=== PATIENT | female | born 1945 | race Hispanic/Latino ===

== ENCOUNTER 2017-07-25 08:00 | Outpatient (CLI) | payer MEDICARE | END 2017-07-25 08:01 | disposition home or self-care (01) | LOC: BICMAMMO 08:00 | PROVIDERS: ATTEND Family Medicine | DX: Z12.31 Encounter for screening mammogram for malignant neoplasm of breast (principal); R92.1 Mammographic calcification found on diagnostic imaging of breast | CPT/HCPCS: 77063 ×2; G0202 ×2; 77067 ==

== ENCOUNTER 2020-01-24 01:33 | Inpatient (IN) | payer MEDICARE, OTHER ==
[2020-01-24 02:15] LABS: Actual Bicarbonate (HCO3a) 22.9 mEq/L (22-28); Analyzer IN Cardio ER; CO2 Tension 35.6 mmHg (35.0-45.0); Calcium, Ionized (arterial) 1.04 mmol/L (1.12-1.30); Carboxyhemoglobin (COHb) 0.5 gm% (0.0-3.0); Hemoglobin (Hb) 12.4 g/dL (12.0-16.0); O2 Tension (PaO2), arterial 93.8 mmHg (> 70.0); Potassium - ABG Lab 4.81 mmol/L (3.70-5.30); pH, Arterial 7.43 (7.35-7.45)
[2020-01-24 02:16] LABS: Puncture Site RR
[2020-01-24 02:35] LABS: Bilirubin Negative (Negative); Blood, Urine Negative (Negative); Clarity Clear (Clear); Glucose, Urine (Dipstick) Greater than 1000 mg/dL (Negative); Ketone, Urine 20 mg/dL (Negative); Leukocyte Negative Leu/uL (Negative); Nitrite Negative (Negative); Protein, Urine (Dipstick) 20 mg/dL (Neg-Trace); Specific Gravity, Urine 1.031 (1.002-1.036); Urobilinogen Normal mg/dL (Less than 2); pH, Urine 5.5 (5.0-9.0)
[2020-01-24 02:55] LABS: #Lymphocytes 0.8 thou/uL (1.20-3.40); #Monocytes 0.2 thou/uL (0.11-0.59); #Neutrophils 8.3 thou/uL (1.40-6.50); %Basophils 0.1 % (0.0-1.0); %Eosinophils 0.2 % (0.0-10.0); %Lymphocytes 8.1 % (21.0-51.0); %Monocytes 1.7 % (0.0-10.0); %Neutrophils 89.9 % (42.0-75.0); Hemoglobin 9.4 g/dL (12.0-16.0); Mean Corpuscular HGB CONC 30.6 g/dL (32.0-36.0); Mean Corpuscular Hemoglobin 31.8 pg (27.0-31.0); Mean Platelet Volume 8.2 fL (7.4-10.4); Platelet Count 181 thou/uL (130-400); RBC Distribution Width 12.9 % (11.5-14.5); Red Blood Cell (RBC) Count 2.97 mill/uL (4.20-5.40); White Blood Cell (WBC) Count 9.3 thou/uL (4.8-10.8)
[2020-01-24] MEDS ORDERED: Furosemide 40 MG/4 ML VIAL ONE (04:00)
[2020-01-24] MEDS ORDERED: Dextrose 50% Abboject 50 ML SYRINGE SLOW IVP PRN (04:04)
[2020-01-24] MEDS ORDERED: Dextrose 5% in Water 1,000 ML IV PRN (04:04)
--- NOTE | 2020-01-24 04:22 | PDOC.EVN ---
Event Note - Event Note Event Note: [id number] dictated
[2020-01-24 05:20] LABS: INR-International Normal Ratio 1.2; Prothrombin Time 14.8 sec (12.0-14.7)
--- NOTE | 2020-01-24 05:31 | HP ---
CHIEF COMPLAINT: Altered mental status. HISTORY OF PRESENT ILLNESS: Ms. Guerra is a 74-year-old female with past medical history of ? coronary artery disease, coronary artery bypass graft surgery, and diabetes mellitus, was brought to the emergency room for altered mental status, low blood pressure, and elevated blood glucose. It was reported her blood glucose was 451. The patient was hypotensive with systolic blood pressure in the 70s. The patient was given IV fluid bolus, latest blood pressure is 109/47. The patient was hypoxic with oxygen saturation in the 70s, placed on nonrebreather. Current oxygen saturation is 98%. The patient had several family members tested positive for COVID. Chest x-ray shows bilateral opacities/infiltrates. Lab work; WBC count is 9.3, hemoglobin 9.4, platelets 181, and lymphocytes low at 0.8. Urinalysis shows glucose, otherwise unremarkable. ABG showed a pH of 7.43, pCO2 of 35, and pO2 of 93. Sodium is 133, potassium 4.8, and creatinine pending. Troponin 0.01 and BNP is 71. No further history can be obtained at this point, the patient is not responding. PAST MEDICAL HISTORY: Limited, but; 1. Diabetes mellitus. 2. Coronary artery disease. PAST SURGICAL HISTORY: Coronary artery bypass graft surgery. FAMILY HISTORY: Unknown. SOCIAL HISTORY: Unknown. ALLERGIES: UNKNOWN. HOME MEDICATIONS: See home medication reconciliation form for updated medications. REVIEW OF SYSTEMS: Unable to obtain due to the patient's underlying medical condition. PHYSICAL EXAMINATION: GENERAL: The patient does not respond to verbal commands on nonrebreather, in moderate distress. HEAD AND NECK: Normocephalic and atraumatic. CHEST: Coarse bilateral breath sounds. HEART: S1 and S2. Regular. ABDOMEN: Soft. Bowel sounds present. NEURO: Does not follow commands. Moving extremities. PSYCH: Unable to assess. EXTREMITIES: No clubbing or cyanosis. LABORATORY DATA: Chest x-ray as mentioned above in history of present illness. Lab as mentioned above in history of present illness. ASSESSMENT: 1. Acute hypoxic respiratory failure. 2. Pneumonia, suspected COVID-19 infection. 3. Hypotension, resolved. 4. Acute encephalopathy, metabolic. 5. Coronary artery disease with history of coronary artery bypass graft surgery. 6. Diabetes mellitus with hyperglycemia. PLAN: 1. Admit. 2. Septic workup including blood cultures, COVID swabs were done in the ED. 3. Empiric IV antibiotics for now. 4. Oxygen to keep saturation more than 92%. 5. Isolation precautions. 6. Consult Pulmonary in a.m. for evaluation and further recommendations. 7. Reconcile home medications. 8. DVT prophylaxis as appropriate. 9. GI prophylaxis. 10. Expected length of stay 3 midnights or more. Job ID: [id number]
[2020-01-24 06:00] LABS: ALT (SGPT) 26 U/L (8-55); AST (SGOT) 37 U/L (5-34); Albumin 3.1 g/dL (3.4-4.8); Alkaline Phosphatase 86 U/L (40-110); Anion Gap 23 mmol/L (10-20); BUN (Urea Nitrogen) 17 mg/dL (9.8-20.1); Bilirubin, Total 0.7 mg/dL (0.2-1.2); Calc. Creatinine Clearance 0 mL/min (70-130); Calcium 8.2 mg/dL (7.8-10.44); Carbon Dioxide 16 mmol/L (23-31); Chloride 102 mmol/L (98-107); Estimated GFR-MDRD 56; Globulin 3.5 g/dL (2.4-3.5); Glucose 404 mg/dL (83-110); Potassium 5.2 mmol/L (3.5-5.1); Protein, Total 6.6 g/dL (6.0-8.3); Sodium 136 mmol/L (136-145)
[2020-01-24 06:02] LABS: Troponin I 0.043 ng/mL (< 0.028)
[2020-01-24] MEDS ORDERED: Lorazepam 2 MG/ML VIAL ONE ×2 (06:30→11:04)
--- NOTE | 2020-01-24 07:37 | RAD ---
Exam: Chest one view HISTORY:Altered mental status. Hypotension. Hyperglycemia Comparison: 10/25/2009, 10/27/2011 FINDINGS: Cardiac silhouette:Normal cardiac silhouette. Sternotomy wires are redemonstrated. Aorta: Atherosclerosis. Pulmonary vessels: Normal Costophrenic angles: Clear LUNGS: Multifocal interstitial and alveolar opacities. Pneumothorax: None Osseous abnormalities: None IMPRESSION: Multifocal interstitial and alveolar opacities. Correlate for edema or infiltrate.
[2020-01-24 08:09] LABS: Actual Bicarbonate (HCO3a) 21.1 mEq/L (22-28); Analyzer IN Cardio ER; Base Excess (BEa) -4.9 mEq/L (-2.0 to +3.0); CO2 Tension 42.5 mmHg (35.0-45.0); Calcium, Ionized (arterial) 1.04 mmol/L (1.12-1.30); Carboxyhemoglobin (COHb) 0.5 gm% (0.0-3.0); Hemoglobin (Hb) 12.8 g/dL (12.0-16.0); O2 Tension (PaO2), arterial 56.1 mmHg (> 70.0); Potassium - ABG Lab 4.72 mmol/L (3.70-5.30); Puncture Site RB; pH, Arterial 7.31 (7.35-7.45)
[2020-01-24 08:10] LABS: ALV-art Gradient 389.875 (0-20)
[2020-01-24 10:33] LABS: Actual Bicarbonate (HCO3a) 20.5 mEq/L (22-28); Base Excess (BEa) -4.5 mEq/L (-2.0 to +3.0); CO2 Tension 37.7 mmHg (35.0-45.0); Calcium, Ionized (arterial) 1.06 mmol/L (1.12-1.30); Carboxyhemoglobin (COHb) 0.8 gm% (0.0-3.0); Hemoglobin (Hb) 12.5 g/dL (12.0-16.0); O2 Tension (PaO2), arterial 71.5 mmHg (> 70.0); Potassium - ABG Lab 4.26 mmol/L (3.70-5.30); pH, Arterial 7.35 (7.35-7.45)
[2020-01-24 10:34] LABS: ALV-art Gradient 380.475 (0-20); Puncture Site RRA
[2020-01-24] MEDS: Enoxaparin Sodium 40 MG/0.4 ML SYRINGE SC SCH (10:52)
[2020-01-24] MEDS: cefTRIAXone\\ROCEPHIN 1 GM in Sodium Chloride 0.9% 100 ML IVPB SCH (10:52)
[2020-01-24] MEDS: Sodium Chloride 0.9% 1,000 ML IV SCH (10:52)
[2020-01-24] MEDS: Famotidine/PF 20 mg/2ml Vial SLOW IVP SCH ×2 (10:53→21:55)
[2020-01-24] MEDS ORDERED: Lorazepam 2 MG/ML VIAL SLOW IVP PRN (10:56)
[2020-01-24 11:05] LABS: Troponin I 0.138 ng/mL (< 0.028)
[2020-01-24] MEDS: Azithromycin 500 MG in Sodium Chloride 0.9% 250 ML 250 ML IVPB SCH (11:15)
[2020-01-24] MEDS: HumaLOG 300 UNITS/3 ML VIAL SC PRN ×3 (11:58→23:50)
[2020-01-24] MEDS: methylPREDNISolone Sod Succ 40 MG VIAL IVP SCH ×3 (11:58→23:43)
[2020-01-24] MEDS ORDERED: Morphine 2 MG/ML SYRINGE SLOW IVP PRN (15:35)
--- NOTE | 2020-01-24 15:42 | CON ---
DATE OF CONSULTATION: HISTORY OF PRESENT ILLNESS: Mick Guerra is a 74-year-old female, whose history is obtained by talking with her daughter who speaks [place], [place]. She states her mother had about a week ago a positive virus test done at [facility] in [place]. No treatment was given. Over the last 24 to 48 hours, she has had more difficulty breathing, cough, with fever. She is a nonsmoker and without previous history of TB, pneumonia. She was brought to the ER last night, where x-ray shows bilateral pulmonary infiltrates. PAST MEDICAL HISTORY: Diabetes, hypertension, coronary artery disease, high cholesterol. PREVIOUS SURGERIES: Bypass here at [facility] but unable to get the access. MEDICATIONS: From home 1. Gabapentin 300 mg three times a day. 2. Metoprolol 50 two a day. 3. Atorvastatin 40. 4. Aspirin 325. 5. Metformin 1000 two a day. 6. Protonix 20. ALLERGIES: UNKNOWN. REVIEW OF SYSTEMS: Otherwise, unremarkable. PHYSICAL EXAMINATION: GENERAL: She is on a BiPAP. VITAL SIGNS: Temperature 98, pulse 100, saturations on a BiPAP over fluctuating between 88 and 93, blood pressure 120/64. LUNGS: She has rhonchi, crackles. CARDIAC: Sinus tach. ABDOMEN: Soft. LABORATORY DATA: PO2 was 71, pCO2 of 37, pH 7.35, on a 70% FiO2 BiPAP. Additional lab, blood sugar was elevated. White count 9000, H and H are 9 and 30, platelet count is 181. Creatinine is normal. BUN is normal. ASSESSMENT: 1. Coronavirus positive pneumonia, respiratory failure, ARDS. 2. Previous CABG, diabetic. Aggressive insulin scale is initiated, steroids, convalescent plasma has been initiated. If she gets progressively worse, she should be intubated. Discussed with the daughter. This is a 70-minute consultation note, 50% direct patient care. Job ID: [id number] [facility]
[2020-01-24] MEDS: Haloperidol Lactate 5 MG/ML VIAL IM PRN (22:36)
[2020-01-25] MEDS: Haloperidol Lactate 5 MG/ML VIAL IM PRN (02:32)
[2020-01-25] MEDS ORDERED: Propofol 1,000 MG/100 ML VIAL IV ONE (03:57)
[2020-01-25] MEDS ORDERED: Sterile Water 10 ML ONE (03:59)
--- NOTE | 2020-01-25 04:11 | PDOC.EVN ---
Event Note - Event Note Event Note: Patient became hypoxic inspite of BiPAp, Intubated and mechanically ventilated.
[2020-01-25] MEDS ORDERED: Fentanyl BOLUS 250 ML IVPB PRN (04:15)
[2020-01-25] MEDS: Vecuronium 10 MG VIAL ONE ×3 (04:15→11:53)
[2020-01-25] MEDS ORDERED: Ventilator Sedation Protocol 1 EACH FS SCH (04:15)
[2020-01-25] MEDS ORDERED: fentaNYL Citrate/PF 2,000 MCG in Sodium Chloride 0.9% 60 ML IV SCH (04:15)
[2020-01-25] MEDS ORDERED: Propofol BOLUS 1,000 MG/100 ML VIAL IV PRN (04:15)
[2020-01-25] MEDS ORDERED: DISCONTINUE PREVIOUS NARCOTIC PAIN MEDICATIONS AND BENZODIAZEPINES FS SCH (04:15)
[2020-01-25 04:39] LABS: Actual Bicarbonate (HCO3a) 19.9 mEq/L (22-28); Base Excess (BEa) -4.1 mEq/L (-2.0 to +3.0); CO2 Tension 32.7 mmHg (35.0-45.0); Calcium, Ionized (arterial) 1.09 mmol/L (1.12-1.30); Carboxyhemoglobin (COHb) 0.8 gm% (0.0-3.0); Hemoglobin (Hb) 10.7 g/dL (12.0-16.0); O2 Tension (PaO2), arterial 78.1 mmHg (> 70.0); Potassium - ABG Lab 4.11 mmol/L (3.70-5.30)
[2020-01-25 04:41] LABS: Puncture Site RRA
[2020-01-25 04:42] LABS: ALV-art Gradient 594.025 (0-20)
[2020-01-25] MEDS: cefTRIAXone\\ROCEPHIN 1 GM in Sodium Chloride 0.9% 100 ML IVPB SCH (05:07)
[2020-01-25] MEDS: Sodium Chloride 0.9% 1,000 ML IV SCH (05:08)
[2020-01-25] MEDS: methylPREDNISolone Sod Succ 40 MG VIAL IVP SCH ×4 (05:08→23:02)
[2020-01-25] MEDS: HumaLOG 300 UNITS/3 ML VIAL SC PRN ×5 (05:17→21:04)
--- NOTE | 2020-01-25 05:31 | PDOC.BPN ---
- Brief Progress Note Code blue called. Patient covid + with multiple comorbidities. 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 Was given haldol x 2 and initially responded to haldol but remained agitated after the second dose. She took off her BiPAP and subsequently became hypoxic and pulseless. When I arrived she was being bagged with strong pulse and PO2 in the 80's. Anesthesia subsequently intubated with good resultant ventilation and oxygenation. I placed a right fem CVC. See operative note.
[2020-01-25] MEDS: Azithromycin 500 MG in Sodium Chloride 0.9% 250 ML 250 ML IVPB SCH (06:15)
[2020-01-25 06:22] LABS: Band 23 % (5-11); Hemoglobin 10.5 g/dL (12.0-16.0); Hypochromia SLIGHT = 6-15 cells (100X) (0-5/hpf); MDiff Complete? YES; Mean Corpuscular HGB CONC 31.3 g/dL (32.0-36.0); Mean Corpuscular Hemoglobin 30.7 pg (27.0-31.0); Mean Corpuscular Volume 97.9 fL (78.0-98.0); Mean Platelet Volume 8.3 fL (7.4-10.4); Monocytes 5 % (0-10); Neutrophil 72 % (42-75); Platelet Count 286 thou/uL (130-400); Platelet Morphology Comment Appears Adequate; RBC Distribution Width 13.2 % (11.5-14.5); Red Blood Cell (RBC) Count 3.42 mill/uL (4.20-5.40); White Blood Cell (WBC) Count 16.4 thou/uL (4.8-10.8)
[2020-01-25 06:30] LABS: ALT (SGPT) 24 U/L (8-55); AST (SGOT) 51 U/L (5-34); Albumin 2.8 g/dL (3.4-4.8); Alkaline Phosphatase 89 U/L (40-110); Anion Gap 16 mmol/L (10-20); BUN (Urea Nitrogen) 18 mg/dL (9.8-20.1); Bilirubin, Total 0.4 mg/dL (0.2-1.2); Calc. Creatinine Clearance 69 mL/min (70-130); Carbon Dioxide 22 mmol/L (23-31); Chloride 112 mmol/L (98-107); Estimated GFR-MDRD 72; Glucose 328 mg/dL (83-110); Potassium 4.4 mmol/L (3.5-5.1); Protein, Total 5.8 g/dL (6.0-8.3); Sodium 146 mmol/L (136-145)
[2020-01-25] MEDS: Enoxaparin Sodium 40 MG/0.4 ML SYRINGE SC SCH ×3 (07:27→20:58)
[2020-01-25] MEDS: Famotidine/PF 20 mg/2ml Vial SLOW IVP SCH (07:28)
[2020-01-25] MEDS: Lorazepam 2 MG/ML VIAL SLOW IVP PRN ×6 (07:30→18:58)
--- NOTE | 2020-01-25 08:07 | RAD ---
SINGLE VIEW OF THE CHEST: COMPARISON: 01/25/2020. HISTORY: Code Blue. Respiratory failure. FINDINGS: A single view of the chest shows a normal-size cardiomediastinal silhouette. The endotracheal tube a nd NG Tube are unchanged in position. There are stable bilateral perihilar fluffy opacities. Atelec tasis versus an infiltrate is seen in the left lung base. IMPRESSION: Stable exam. POS: SANTOA
--- NOTE | 2020-01-25 08:09 | RAD ---
SINGLE VIEW OF THE CHEST: COMPARISON: 01/24/2020. HISTORY: Code Blue with respiratory failure. FINDINGS: A single view of the chest shows a normal-size cardiomediastinal silhouette with atherosclerotic calc ifications in the aorta. The endotracheal tube is seen with its tip in good position above the summer a. An NG tube is seen with its tip in the stomach. There are bilateral perihilar fluffy opacities. Atelectasis versus an infiltrate is seen in the left lung base. The patient is status post sternoto my. IMPRESSION: 1. Status post intubation with appropriate positioning within the endotracheal tube. 2. Bilateral perihilar and left lower lobe infiltrates. POS: EAA
[2020-01-25] MEDS ORDERED: Vecuronium Bromide 20 MG VIAL IV PRN (09:00)
[2020-01-25] MEDS ORDERED: Tocilizumab 400 MG in Sodium Chloride 0.9% 80 ML IV SCH (09:15)
[2020-01-25] MEDS ORDERED: REMDESIVIR 200 MG in Sodium Chloride 0.9% 250 ML 210 ML IV SCH (09:15)
--- NOTE | 2020-01-25 09:45 | PRG ---
DATE OF SERVICE: 01/25/2020 SUBJECTIVE: Mick Guerra who became more encephalopathic last night, took out of BiPAP, had to be intubated. X-ray shows diffuse pulmonary infiltrates consistent with ARDS. OBJECTIVE: VITAL SIGNS: Temperature 99, pulse 93, and sats 100%. CHEST: Decreased breath sounds. Rhonchi and crackles. CARDIAC: Sinus tach. ABDOMEN: Soft. NEUROLOGIC: Sedated. LABORATORY DATA: White count 16,000, H and H 10/30, and platelet count is normal. PO2 of 78, pCO2 rate of 20, 100%, 450 tidal volume. ASSESSMENT: Respiratory failure, acute respiratory distress syndrome, coronavirus positive pneumonia. Diabetes. We are going to give her convalescent plasma, remdesivir per protocol, along with steroids, antibiotics. She is going to be prone for a minimum of 16 to 18 hours for the next 48 to 72 hours. Once oxygenation improves, supine position and start feedings. Prognosis is guarded. One-half hour of critical care time. Job ID: [id number]
[2020-01-25] MEDS: Propofol 1,000 MG/100 ML VIAL IV PRN ×2 (09:52→14:02)
--- NOTE | 2020-01-25 10:42 | OP ---
DATE OF PROCEDURE: 01/25/2020 PROCEDURE PERFORMED: Right femoral central venous catheter placement. INDICATIONS FOR PROCEDURE: Code blue with subsequent need for IV access. CONSENT: This was an emergent procedure. DESCRIPTION OF PROCEDURE: The patient was placed in the supine position. The right groin was cleaned with chlorhexidine. Hand hygiene was performed. A hat, mask, gown, gloves and full body drape were utilized. One attempt was made with no ultrasound guidance in the right groin with no blood return. Subsequently, the ultrasound machine was brought into the room and a sterile probe cover was placed and using ultrasound guidance , the right femoral vein was accessed on the second attempt with dark blood that was nonpulsatile withdrawn. The syringe was removed and a guidewire was advanced into the introducer needle. The introducer needle was withdrawn and the guidewire was visualized in the right femoral vein by ultrasound. A small incision was made at the skin surface with a scalpel and a dilator was advanced over the guidewire. After appropriate dilation, this was removed and a triple lumen central venous catheter was placed over the wire. The wire was subsequently removed and a catheter was sutured in place. All ports were aspirated and flushed. The RN placed a dressing subsequently to it being sutured in place. The patient tolerated the procedure well. ESTIMATED BLOOD LOSS: 5 mL. Job ID: [id number] [facility]
[2020-01-25] MEDS: Vecuronium 10 MG VIAL IV PRN ×4 (14:03→23:02)
--- NOTE | 2020-01-25 17:25 | PDOC.EVN ---
Event Note - Event Note Event Note: The patient is intubated, sedated. She was placed in the prone position. She received IL6 therapy, ceftriaxone and azithromycin General: patient intubated, sedated, in prone position CV: sinus rhythm, not tachycardic Lungs: diffuse crackles abdomen: nondistended Ext: no significant edema Labs: WBC 16.4, Chest Xray: infiltrate LL base This is a 74 year old female who presented with COVId pneumonia, desaturated overnight and required intubation Acute hypoxic respiratory failure secondary to COVID pneumonia - intubated,in prone position - continue ceftriaxone, azithromycin, IV steroids, tocilizumab - receiving plasma - waiting for consent from family for remdesivir Hypernatremia - sodium and chloride elevated, will switch to 1/2 NS Type II diabetes - will start lantus 8 units SC qhs DVT prophylaxis: lovenox Code status: full code
[2020-01-25] MEDS ORDERED: Insulin Glargine 8 UNITS in Pre-Filled Syringe 1 EACH SC SCH (21:00)
[2020-01-25] MEDS: Famotidine 40 MG/5 ML Oral Suspension PER TUBE SCH (22:20)
[2020-01-25] MEDS: Sodium Chloride 0.45% 1,000 ML IV SCH (22:20)
[2020-01-26] MEDS: HumaLOG 300 UNITS/3 ML VIAL SC PRN ×6 (00:16→23:41)
[2020-01-26] MEDS: Propofol 1,000 MG/100 ML VIAL IV PRN ×3 (03:23→15:46)
[2020-01-26 04:49] LABS: #Lymphocytes 0.4 thou/uL (1.20-3.40); #Monocytes 0.3 thou/uL (0.11-0.59); #Neutrophils 11.7 thou/uL (1.40-6.50); %Eosinophils 0.1 % (0.0-10.0); %Lymphocytes 3.5 % (21.0-51.0); %Monocytes 2.3 % (0.0-10.0); %Neutrophils 94.1 % (42.0-75.0); Hemoglobin 9.5 g/dL (12.0-16.0); Mean Corpuscular HGB CONC 32.7 g/dL (32.0-36.0); Mean Corpuscular Hemoglobin 31.9 pg (27.0-31.0); Mean Corpuscular Volume 97.7 fL (78.0-98.0); Mean Platelet Volume 8.3 fL (7.4-10.4); Platelet Count 273 thou/uL (130-400); RBC Distribution Width 13.1 % (11.5-14.5); Red Blood Cell (RBC) Count 2.96 mill/uL (4.20-5.40); White Blood Cell (WBC) Count 12.4 thou/uL (4.8-10.8)
[2020-01-26 05:09] LABS: Anion Gap 13 mmol/L (10-20); BUN (Urea Nitrogen) 20 mg/dL (9.8-20.1); Calc. Creatinine Clearance 79 mL/min (70-130); Calcium 7.6 mg/dL (7.8-10.44); Carbon Dioxide 25 mmol/L (23-31); Chloride 114 mmol/L (98-107); Estimated GFR-MDRD 84; Glucose 228 mg/dL (83-110); Potassium 3.5 mmol/L (3.5-5.1); Sodium 148 mmol/L (136-145)
[2020-01-26] MEDS: Vecuronium 10 MG VIAL IV PRN ×3 (05:34→16:35)
[2020-01-26] MEDS: methylPREDNISolone Sod Succ 40 MG VIAL IVP SCH ×4 (05:34→23:41)
[2020-01-26] MEDS: Enoxaparin Sodium 40 MG/0.4 ML SYRINGE SC SCH ×2 (07:29→21:10)
[2020-01-26 07:32] LABS: Actual Bicarbonate (HCO3a) 23.5 mEq/L (22-28); Base Excess (BEa) -0.5 mEq/L (-2.0 to +3.0); CO2 Tension 35.9 mmHg (35.0-45.0); Carboxyhemoglobin (COHb) 0.1 gm% (0.0-3.0); Hemoglobin (Hb) 9.5 g/dL (12.0-16.0); O2 Tension (PaO2), arterial 146.7 mmHg (> 70.0); Potassium - ABG Lab 3.55 mmol/L (3.70-5.30); pH, Arterial 7.43 (7.35-7.45)
[2020-01-26] MEDS: cefTRIAXone\\ROCEPHIN 1 GM in Sodium Chloride 0.9% 100 ML IVPB SCH (07:32)
[2020-01-26] MEDS: Sodium Chloride 0.45% 1,000 ML IV SCH ×2 (07:50→23:41)
[2020-01-26 07:57] LABS: ALV-art Gradient 236.225 (0-20); Puncture Site RRAD
[2020-01-26] MEDS: Azithromycin 500 MG in Sodium Chloride 0.9% 250 ML 250 ML IVPB SCH (08:25)
[2020-01-26] MEDS: Famotidine 40 MG/5 ML Oral Suspension PER TUBE SCH ×2 (08:25→21:10)
--- NOTE | 2020-01-26 08:26 | RAD ---
Exam: Chest one view HISTORY:Ventilated patient. Respiratory distress. Comparison: 01/25/2020 FINDINGS: Lines and tubes: Stable endotracheal and nasogastric tubes. Stable sternotomy wires. Cardiac silhouette:Enlarged cardiac silhouette. Aorta: Stable atherosclerosis Pulmonary vessels: Normal Costophrenic angles: Clear LUNGS: Stable opacification of the lung parenchyma. Pneumothorax: None Osseous abnormalities: None IMPRESSION: No significant interval change.
[2020-01-26] MEDS: REMDESIVIR 100 MG in Sodium Chloride 0.9% 250 ML 230 ML IV SCH (08:29)
[2020-01-26] MEDS ORDERED: Sterile Water 10 ML ONE (12:33)
--- NOTE | 2020-01-26 16:30 | PDOC.EVN ---
Event Note - Event Note Event Note: Note edited to reflect today's care of plan. 74 year old female who presented with COVId pneumonia, desaturated overnight and required intubation Intubated, sedated. changed from prone to supine posisiton, on TF. General: patient intubated, sedated, in supine position Acute hypoxic respiratory failure secondary to COVID pneumonia - intubated,in prone position - continue ceftriaxone, azithromycin, IV steroids, tocilizumab - s/p plasma - remdesivir started -monitor LFTs, aPTT, CRP and ferritin periodically Hypernatremia - sodium and chloride elevated, will switch to 1/2 NS Type II diabetes - will start lantus 8 units SC qhs--titrated. DVT prophylaxis: lovenox Code status: full code prognosis -- guarded
--- NOTE | 2020-01-26 16:45 | PRG ---
DATE OF SERVICE: 01/26/2020 OBJECTIVE: VITAL SIGNS: His temperature 99, heart rate 96, FiO2 is at 40%, blood pressure 144/89, and heart rate is 102. LUNGS: Clear anteriorly. HEART: Regular rate and rhythm. ABDOMEN: Soft. DIAGNOSTIC DATA: LABORATORY: White count 12.4, hemoglobin 9.5, and platelets 273. Sodium 148, potassium 3.5, chloride 114, bicarb 25, BUN 20, creatinine 0.68. PH 7.43, CO2 of 35, PO2 146. IMAGING: Chest x-ray is unchanged. IMPRESSION: Respiratory failure, COVID-19. PLAN: Continue mechanical ventilation. She did well with her prone ventilation. Critical care time 30 min. Job ID: [id number] MTDD
[2020-01-26] MEDS ORDERED: Insulin Glargine 12 UNITS in Pre-Filled Syringe 1 EACH SC SCH (21:00)
[2020-01-26] MEDS: Lorazepam 2 MG/ML VIAL SLOW IVP PRN (21:11)
[2020-01-26] MEDS: Acetaminophen 325 MG TAB PO PRN (23:53)
[2020-01-27] MEDS: Lorazepam 2 MG/ML VIAL SLOW IVP PRN ×3 (00:36→17:34)
[2020-01-27] MEDS: Vecuronium 10 MG VIAL IV PRN (02:51)
[2020-01-27] MEDS: HumaLOG 300 UNITS/3 ML VIAL SC PRN ×6 (03:52→23:57)
[2020-01-27 04:29] LABS: #Lymphocytes 0.4 thou/uL (1.20-3.40); #Monocytes 0.4 thou/uL (0.11-0.59); #Neutrophils 9.8 thou/uL (1.40-6.50); %Eosinophils 0.1 % (0.0-10.0); %Lymphocytes 3.4 % (21.0-51.0); %Monocytes 3.3 % (0.0-10.0); %Neutrophils 93.1 % (42.0-75.0); Hemoglobin 9.8 g/dL (12.0-16.0); Mean Corpuscular HGB CONC 31.3 g/dL (32.0-36.0); Mean Corpuscular Hemoglobin 30.8 pg (27.0-31.0); Mean Corpuscular Volume 98.3 fL (78.0-98.0); Mean Platelet Volume 8.5 fL (7.4-10.4); Platelet Count 289 thou/uL (130-400); RBC Distribution Width 13.6 % (11.5-14.5); Red Blood Cell (RBC) Count 3.18 mill/uL (4.20-5.40); White Blood Cell (WBC) Count 10.5 thou/uL (4.8-10.8)
[2020-01-27 04:49] LABS: Anion Gap 13 mmol/L (10-20); BUN (Urea Nitrogen) 27 mg/dL (9.8-20.1); CRP (Inflammatory) 11.13 mg/dL (= or < 0.5); Calc. Creatinine Clearance 66 mL/min (70-130); Calcium 7.8 mg/dL (7.8-10.44); Carbon Dioxide 25 mmol/L (23-31); Chloride 113 mmol/L (98-107); Estimated GFR-MDRD 69; Glucose 369 mg/dL (83-110); Potassium 3.8 mmol/L (3.5-5.1); Sodium 147 mmol/L (136-145)
[2020-01-27 04:52] LABS: ALT (SGPT) 23 U/L (8-55); AST (SGOT) 31 U/L (5-34); Albumin 2.5 g/dL (3.4-4.8); Alkaline Phosphatase 93 U/L (40-110); Bilirubin, Direct 0.2 mg/dL (0.1-0.3); Bilirubin, Total 0.2 mg/dL (0.2-1.2); Protein, Total 5.3 g/dL (6.0-8.3)
[2020-01-27 05:05] LABS: PTT 31.8 sec (22.9-36.1)
[2020-01-27 05:06] LABS: INR-International Normal Ratio 1.2; Prothrombin Time 15.1 sec (12.0-14.7)
[2020-01-27 05:13] LABS: D-Dimer Test 5.14 *mcg/mL (0.27-0.43)
[2020-01-27] MEDS: methylPREDNISolone Sod Succ 40 MG VIAL IVP SCH ×4 (05:49→23:57)
[2020-01-27 07:54] LABS: Actual Bicarbonate (HCO3a) 21.1 mEq/L (22-28); Base Excess (BEa) -2.4 mEq/L (-2.0 to +3.0); CO2 Tension 31.9 mmHg (35.0-45.0); Calcium, Ionized (arterial) 1.13 mmol/L (1.12-1.30); Carboxyhemoglobin (COHb) 0.9 gm% (0.0-3.0); Hemoglobin (Hb) 11.4 g/dL (12.0-16.0); O2 Tension (PaO2), arterial 68.6 mmHg (> 70.0); Potassium - ABG Lab 3.78 mmol/L (3.70-5.30); pH, Arterial 7.44 (7.35-7.45)
[2020-01-27] MEDS: Enoxaparin Sodium 40 MG/0.4 ML SYRINGE SC SCH ×2 (08:06→20:02)
[2020-01-27] MEDS: cefTRIAXone\\ROCEPHIN 1 GM in Sodium Chloride 0.9% 100 ML IVPB SCH (08:06)
[2020-01-27] MEDS: Famotidine 40 MG/5 ML Oral Suspension PER TUBE SCH ×2 (08:06→20:02)
[2020-01-27] MEDS: Propofol 1,000 MG/100 ML VIAL IV PRN ×3 (08:06→22:32)
[2020-01-27] MEDS: Azithromycin 500 MG in Sodium Chloride 0.9% 250 ML 250 ML IVPB SCH (08:07)
[2020-01-27 08:30] LABS: Puncture Site RRAD
[2020-01-27 08:31] LABS: ALV-art Gradient 176.725 (0-20)
--- NOTE | 2020-01-27 08:47 | RAD ---
CHEST 1 VIEW PORTABLE: Date: 01/27/2020 HISTORY: Respiratory insufficiency. COMPARISON: 01/26/2020. FINDINGS: Stable life support tubes. Overall stable extensive bilateral mostly alveolar and ground-glass opacit y changes throughout both lungs. IMPRESSION: Extensive bilateral but overall stable appearing alveolar and ground-glass opacity changes throughout both lungs. POS: RRE
[2020-01-27] MEDS: REMDESIVIR 100 MG in Sodium Chloride 0.9% 250 ML 230 ML IV SCH (08:58)
[2020-01-27] MEDS: Morphine 2 MG/ML SYRINGE SLOW IVP PRN ×3 (09:13→17:39)
[2020-01-27] MEDS: Sodium Chloride 0.45% 1,000 ML IV SCH (13:42)
--- NOTE | 2020-01-27 13:57 | PDOC.EVN ---
Event Note - Event Note Event Note: Note edited to reflect today's care of plan. 74 year old female who presented with COVId pneumonia, desaturated overnight and required intubation talk to RN; BG quite high, --- changed to aggressive scale --changed insulin to bid doses as BG > 300 General: patient intubated, sedated, in supine position Acute hypoxic respiratory failure secondary to COVID pneumonia - intubated,in prone position - continue ceftriaxone, azithromycin, IV steroids, tocilizumab - s/p plasma - remdesivir started -monitor LFTs, aPTT, CRP and ferritin periodically Hypernatremia - sodium and chloride elevated, will switch to 1/2 NS Type II diabetes & Steroid induced hyperglycemia - lantus 15 bid, aggressSSI - getting a1c DVT prophylaxis: lovenox Code status: full code prognosis -- guarded
--- NOTE | 2020-01-27 14:10 | PRG ---
DATE OF SERVICE: 01/27/2020 SUBJECTIVE: Mick Guerra remains mechanically ventilated. OBJECTIVE: VITAL SIGNS: Heart rate is in the 70s, blood pressure 145/64, respiratory rate is 18, oximetry is 99. LUNGS: Unchanged. HEART: Unchanged. ABDOMEN: Unchanged. LABORATORY DATA: White count 10.5, hemoglobin 9.8, and platelets 289. Sodium 147, potassium 3.8, chloride 113, bicarb 25, BUN 27, creatinine 0.8, and glucose 369. We will start her on some long-acting insulin with an aggressive sliding scale as well. IMPRESSION: COVID-19 pneumonia. Her gas exchange appears to be stabilizing. Chest radiograph stable with bilateral infiltrates. The C-reactive protein today still is 11. We were not recommending weaning and extubation just yet. We will continue critical care support. CRITICAL CARE TIME: 30 minutes. Job ID: [id number]
[2020-01-27] MEDS ORDERED: Insulin Glargine 20 UNITS in Pre-Filled Syringe 1 EACH SC SCH (20:00)
[2020-01-27] MEDS ORDERED: Insulin Glargine 15 UNITS in Pre-Filled Syringe 1 EACH SC SCH ×2 (21:00)
[2020-01-28] MEDS: Lorazepam 2 MG/ML VIAL SLOW IVP PRN ×3 (00:18→23:46)
[2020-01-28] MEDS: Morphine 2 MG/ML SYRINGE SLOW IVP PRN ×5 (00:18→19:11)
[2020-01-28] MEDS: Sodium Chloride 0.45% 1,000 ML IV SCH (03:06)
[2020-01-28] MEDS: HumaLOG 300 UNITS/3 ML VIAL SC PRN ×6 (03:42→23:07)
[2020-01-28 04:03] LABS: #Lymphocytes 0.3 thou/uL (1.20-3.40); #Monocytes 0.3 thou/uL (0.11-0.59); #Neutrophils 8.2 thou/uL (1.40-6.50); %Basophils 0.1 % (0.0-1.0); %Eosinophils 0.1 % (0.0-10.0); %Lymphocytes 3.5 % (21.0-51.0); %Monocytes 3.6 % (0.0-10.0); %Neutrophils 92.8 % (42.0-75.0); Hemoglobin 10.2 g/dL (12.0-16.0); Mean Corpuscular HGB CONC 33.6 g/dL (32.0-36.0); Mean Corpuscular Hemoglobin 32.5 pg (27.0-31.0); Mean Corpuscular Volume 96.9 fL (78.0-98.0); Mean Platelet Volume 8.4 fL (7.4-10.4); Platelet Count 289 thou/uL (130-400); RBC Distribution Width 13.3 % (11.5-14.5); Red Blood Cell (RBC) Count 3.15 mill/uL (4.20-5.40); White Blood Cell (WBC) Count 8.8 thou/uL (4.8-10.8)
[2020-01-28 04:07] LABS: INR-International Normal Ratio 1.2; PTT 28.6 sec (22.9-36.1); Prothrombin Time 14.7 sec (12.0-14.7)
[2020-01-28 04:09] LABS: Hemoglobin A1c 11.7 % (4.0-6.0)
[2020-01-28 04:24] LABS: ALT (SGPT) 25 U/L (8-55); AST (SGOT) 26 U/L (5-34); Albumin 2.5 g/dL (3.4-4.8); Alkaline Phosphatase 99 U/L (40-110); Anion Gap 12 mmol/L (10-20); BUN (Urea Nitrogen) 32 mg/dL (9.8-20.1); Bilirubin, Direct 0.2 mg/dL (0.1-0.3); Bilirubin, Total 0.2 mg/dL (0.2-1.2); Calc. Creatinine Clearance 68 mL/min (70-130); Calcium 7.5 mg/dL (7.8-10.44); Carbon Dioxide 26 mmol/L (23-31); Chloride 115 mmol/L (98-107); Estimated GFR-MDRD 71; Glucose 385 mg/dL (83-110); Potassium 3.7 mmol/L (3.5-5.1); Protein, Total 5.4 g/dL (6.0-8.3); Sodium 149 mmol/L (136-145)
[2020-01-28] MEDS: methylPREDNISolone Sod Succ 40 MG VIAL IVP SCH ×3 (05:00→20:01)
--- NOTE | 2020-01-28 07:58 | RAD ---
EXAM: Single view of the chest HISTORY: Ventilated patient with respiratory failure COMPARISON: 01/27/2020 FINDINGS: Single view of the chest shows a normal sized cardiomediastinal silhouette. The patient is status post sternotomy. The endotracheal tube and NG tube are unchanged in position. Opacities are seen in the lung bases which may represent atelectasis or infiltrates. The bones are unremarkable . IMPRESSION: Stable exam
[2020-01-28] MEDS: cefTRIAXone\\ROCEPHIN 1 GM in Sodium Chloride 0.9% 100 ML IVPB SCH (08:08)
[2020-01-28] MEDS: Famotidine 40 MG/5 ML Oral Suspension PER TUBE SCH ×2 (08:09→20:01)
[2020-01-28] MEDS: Azithromycin 500 MG in Sodium Chloride 0.9% 250 ML 250 ML IVPB SCH (08:10)
[2020-01-28] MEDS: REMDESIVIR 100 MG in Sodium Chloride 0.9% 250 ML 230 ML IV SCH (08:10)
[2020-01-28] MEDS: Enoxaparin Sodium 40 MG/0.4 ML SYRINGE SC SCH ×2 (08:10→20:01)
[2020-01-28 08:16] LABS: Actual Bicarbonate (HCO3a) 24.3 mEq/L (22-28); Base Excess (BEa) 0.9 mEq/L (-2.0 to +3.0); CO2 Tension 34.9 mmHg (35.0-45.0); Calcium, Ionized (arterial) 1.15 mmol/L (1.12-1.30); Hemoglobin (Hb) 13.1 g/dL (12.0-16.0); Potassium - ABG Lab 3.84 mmol/L (3.70-5.30); pH, Arterial 7.46 (7.35-7.45)
[2020-01-28 08:20] LABS: ALV-art Gradient 229.825 (0-20); O2 Tension (PaO2), arterial 47.4 mmHg (> 70.0); Puncture Site LRA
[2020-01-28] MEDS ORDERED: Insulin Glargine 15 UNITS in Pre-Filled Syringe 1 EACH SC SCH (09:00)
--- NOTE | 2020-01-28 09:17 | PRG ---
DATE OF SERVICE: 01/28/2020 SUBJECTIVE: Intubated, vented, sedated. I's and O's have been consistently ahead. OBJECTIVE: CHEST: Reveals decreased breath sounds without any wheezing. CARDIAC: Normal S1, S2. No gallops. ABDOMEN: Soft. VITAL SIGNS: Temperature is still elevated at 99, pulse 103, blood pressure 157 /60, sats are still 90%. DIAGNOSTIC STUDIES: X-ray still shows bilateral infiltrates. White count 8000 , H and H 10 and 30, and platelet count 289. PO2 is only 47, pCO2 PEEP of 11. Lytes are normal. Blood sugar is elevated. ASSESSMENT AND PLAN: Diabetes, coronavirus pneumonia. Not weanable at this stage. Decrease steroids because of diabetes. I am going to restart feedings. We will follow. One-half hour of critical care time. Job ID: [id number] MTDD
--- NOTE | 2020-01-28 11:41 | PDOC.EVN ---
Event Note - Event Note Event Note: 74 year old female who presented with COVId pneumonia, desaturated overnight and required intubation talk to RN; BG quite high, --- changed to aggressive scale --changed insulin to bid doses as BG > 300 his a1c >11. will change the TF to glucerna General: patient intubated, sedated, in supine position Acute hypoxic respiratory failure secondary to COVID pneumonia - intubated,in prone position - continue ceftriaxone, azithromycin, IV steroids, tocilizumab - s/p plasma - remdesivir started -monitor LFTs, aPTT, CRP and ferritin periodically Hypernatremia - sodium elevated, will switch to 1/2 NS -cant give D5 as already BG>300 Type II diabetes [11.7] & Steroid induced hyperglycemia - lantus 20 bid, aggressSSI -a1c 11.7 -glucerna TF -steroid dose reduced TF - switch to glucerna. DVT prophylaxis: lovenox Code status: full code prognosis -- guarded
[2020-01-28] MEDS ORDERED: Potassium Chloride 20 MEQ in Sodium Chloride 0.45% 1,000 ML IV SCH (11:45)
[2020-01-28] MEDS: Propofol 1,000 MG/100 ML VIAL IV PRN ×3 (11:55→22:51)
[2020-01-28] MEDS ORDERED: Pancrelipase DR 12000 1 CAP FS PRN (13:05)
[2020-01-28] MEDS ORDERED: Sodium Bicarbonate Tab 325 MG TAB PER TUBE PRN (13:05)
[2020-01-28] MEDS: Insulin Glargine 20 UNITS in Pre-Filled Syringe 1 EACH SC SCH (20:01)
[2020-01-29] MEDS: Morphine 2 MG/ML SYRINGE SLOW IVP PRN (03:08)
[2020-01-29 03:27] LABS: #Lymphocytes 0.6 thou/uL (1.20-3.40); #Monocytes 0.3 thou/uL (0.11-0.59); #Neutrophils 9.8 thou/uL (1.40-6.50); %Basophils 0.1 % (0.0-1.0); %Eosinophils 0.1 % (0.0-10.0); %Lymphocytes 5.6 % (21.0-51.0); %Monocytes 2.9 % (0.0-10.0); %Neutrophils 91.4 % (42.0-75.0); Hemoglobin 10.7 g/dL (12.0-16.0); Mean Corpuscular HGB CONC 33.2 g/dL (32.0-36.0); Mean Corpuscular Hemoglobin 32.1 pg (27.0-31.0); Mean Corpuscular Volume 96.7 fL (78.0-98.0); Mean Platelet Volume 8.4 fL (7.4-10.4); Platelet Count 300 thou/uL (130-400); RBC Distribution Width 13.2 % (11.5-14.5); Red Blood Cell (RBC) Count 3.32 mill/uL (4.20-5.40); White Blood Cell (WBC) Count 10.7 thou/uL (4.8-10.8)
[2020-01-29 03:34] LABS: INR-International Normal Ratio 1.1; Prothrombin Time 14.1 sec (12.0-14.7)
[2020-01-29 03:35] LABS: PTT 28.2 sec (22.9-36.1)
[2020-01-29] MEDS: Propofol 1,000 MG/100 ML VIAL IV PRN ×4 (03:38→22:54)
[2020-01-29 03:54] LABS: ALT (SGPT) 27 U/L (8-55); AST (SGOT) 29 U/L (5-34); Albumin 2.5 g/dL (3.4-4.8); Alkaline Phosphatase 108 U/L (40-110); Anion Gap 14 mmol/L (10-20); BUN (Urea Nitrogen) 28 mg/dL (9.8-20.1); Bilirubin, Direct 0.1 mg/dL (0.1-0.3); Bilirubin, Total 0.4 mg/dL (0.2-1.2); Calc. Creatinine Clearance 74 mL/min (70-130); Calcium 7.8 mg/dL (7.8-10.44); Carbon Dioxide 26 mmol/L (23-31); Chloride 115 mmol/L (98-107); Estimated GFR-MDRD 78; Glucose 293 mg/dL (83-110); Potassium 4.1 mmol/L (3.5-5.1); Protein, Total 5.5 g/dL (6.0-8.3); Sodium 151 mmol/L (136-145)
[2020-01-29] MEDS: HumaLOG 300 UNITS/3 ML VIAL SC PRN ×4 (03:57→16:21)
[2020-01-29] MEDS ORDERED: 1/2 NS w/KCL 20 mEq 1,000 ML IV SCH (07:00)
--- NOTE | 2020-01-29 07:54 | RAD ---
EXAM: Single view of the chest HISTORY: Ventilated patient with respiratory failure COMPARISON: 01/28/2020 FINDINGS: Single view of the chest shows a normal sized cardiomediastinal silhouette. The patient is status post sternotomy. The endotracheal tube and NG tube are unchanged in position. There are stable mixed infiltrates in the lungs, more prominent in the bases. The bones are unremarkable. IMPRESSION: Stable exam
[2020-01-29 08:31] LABS: Actual Bicarbonate (HCO3a) 26.4 mEq/L (22-28); Base Excess (BEa) 2.1 mEq/L (-2.0 to +3.0); CO2 Tension 39.9 mmHg (35.0-45.0); Calcium, Ionized (arterial) 1.14 mmol/L (1.12-1.30); Carboxyhemoglobin (COHb) 0.2 gm% (0.0-3.0); Hemoglobin (Hb) 10.4 g/dL (12.0-16.0); O2 Tension (PaO2), arterial 70.1 mmHg (> 70.0); pH, Arterial 7.44 (7.35-7.45)
[2020-01-29 08:32] LABS: Puncture Site RR
[2020-01-29 08:33] LABS: ALV-art Gradient 236.525 (0-20)
[2020-01-29] MEDS: Lorazepam 2 MG/ML VIAL SLOW IVP PRN ×3 (08:44→20:15)
[2020-01-29] MEDS: REMDESIVIR 100 MG in Sodium Chloride 0.9% 250 ML 230 ML IV SCH (08:45)
[2020-01-29] MEDS: Azithromycin 500 MG in Sodium Chloride 0.9% 250 ML 250 ML IVPB SCH (08:45)
[2020-01-29] MEDS: cefTRIAXone\\ROCEPHIN 1 GM in Sodium Chloride 0.9% 100 ML IVPB SCH (08:46)
[2020-01-29] MEDS: Insulin Glargine 20 UNITS in Pre-Filled Syringe 1 EACH SC SCH (08:47)
[2020-01-29] MEDS: Famotidine 40 MG/5 ML Oral Suspension PER TUBE SCH ×2 (08:47→21:12)
[2020-01-29] MEDS: methylPREDNISolone Sod Succ 40 MG VIAL IVP SCH ×2 (09:22→20:06)
[2020-01-29] MEDS: Enoxaparin Sodium 40 MG/0.4 ML SYRINGE SC SCH ×2 (09:22→20:06)
--- NOTE | 2020-01-29 09:31 | PRG ---
DATE OF SERVICE: 01/29/2020 SUBJECTIVE: Mick Guerra is a 74-year-old female, remains intubated in the vent, sedated. OBJECTIVE: VITAL SIGNS: Pulse 86, blood pressure respirations 16, and sats 98%. I's and O's have been consistently ahead. CHEST: Bilateral rhonchi and crackles. CARDIAC: Sinus tach. ABDOMEN: Soft. LABORATORY DATA: PO2 rate at 16, 12 of PEEP, 450 tidal volume. White count 10,000. Sodium is 151, she may be dry. Bicarb is normal. Glucose is 293. ASSESSMENT: Diabetes, BNP normal, acute respiratory distress syndrome, coronavirus positive pneumonia. Slow improvement. Continue antibiotics, steroids. Increase insulin. Increase IV fluids. We will follow. One-half hour of critical care time. Job ID: [id number]
[2020-01-29] MEDS ORDERED: Insulin Glargine 10 UNITS in Pre-Filled Syringe 1 EACH SC SCH (10:00)
[2020-01-29] MEDS: Insulin Glargine 30 UNITS in Pre-Filled Syringe 1 EACH SC SCH ×2 (10:48→21:11)
--- NOTE | 2020-01-29 14:31 | PDOC.EVN ---
Event Note - Event Note Event Note: d/w RN and and Dr. Herrera his Na is trending up --due to dehydration. -on 1/2 nS. 74 year old female who presented with COVId pneumonia, desaturated overnight and required intubation talk to RN; BG quite high, --- changed to aggressive scale --changed insulin to bid doses as BG > 300 his a1c >11. will change the TF to glucerna General: patient intubated, sedated, in supine position Acute hypoxic respiratory failure secondary to COVID pneumonia - intubated,in prone position - continue ceftriaxone, azithromycin, IV steroids, tocilizumab - s/p plasma - remdesivir started -monitor LFTs, aPTT, CRP and ferritin periodically Hypernatremia - sodium elevated, will switch to 1/2 NS--------pt is dehydrated -- so conw / 2 NS -cant give D5 as already BG>300----> increased the insulin doses Type II diabetes [11.7] & Steroid induced hyperglycemia - lantus 20 bid, aggressSSI -a1c 11.7 -glucerna TF -steroid dose reduced TF - switched to glucerna. DVT prophylaxis: lovenox Code status: full code prognosis -- guarded
[2020-01-29] MEDS: 1/2 NS w/KCL 20 mEq 1,000 ML IV SCH ×2 (18:18→21:13)
[2020-01-30] MEDS: Lorazepam 2 MG/ML VIAL SLOW IVP PRN ×2 (00:05→20:12)
[2020-01-30] MEDS: HumaLOG 300 UNITS/3 ML VIAL SC PRN ×6 (00:17→23:56)
[2020-01-30 03:29] LABS: Anion Gap 14 mmol/L (10-20); BUN (Urea Nitrogen) 25 mg/dL (9.8-20.1); Band 9 % (5-11); Calc. Creatinine Clearance 83 mL/min (70-130); Calcium 7.7 mg/dL (7.8-10.44); Carbon Dioxide 24 mmol/L (23-31); Chloride 113 mmol/L (98-107); Eosinophils 1 % (0-10); Estimated GFR-MDRD 84; Glucose 255 mg/dL (83-110); Hemoglobin 10.3 g/dL (12.0-16.0); Lymphocytes 3 % (21-51); MDiff Complete? YES; Mean Corpuscular HGB CONC 33.6 g/dL (32.0-36.0); Mean Corpuscular Hemoglobin 32.5 pg (27.0-31.0); Mean Corpuscular Volume 96.7 fL (78.0-98.0); Mean Platelet Volume 8.8 fL (7.4-10.4); Monocytes 4 % (0-10); Neutrophil 83 % (42-75); Nucleated RBC 1 % (0); Platelet Count 260 thou/uL (130-400); Platelet Morphology Comment Appears Adequate; Potassium 4.5 mmol/L (3.5-5.1); RBC Distribution Width 13.2 % (11.5-14.5); Red Blood Cell (RBC) Count 3.16 mill/uL (4.20-5.40); Sodium 146 mmol/L (136-145); White Blood Cell (WBC) Count 8.3 thou/uL (4.8-10.8)
[2020-01-30] MEDS: Propofol 1,000 MG/100 ML VIAL IV PRN ×3 (04:33→21:26)
[2020-01-30 08:25] LABS: Actual Bicarbonate (HCO3a) 25.6 mEq/L (22-28); Base Excess (BEa) 1.9 mEq/L (-2.0 to +3.0); CO2 Tension 36.6 mmHg (35.0-45.0); Calcium, Ionized (arterial) 1.11 mmol/L (1.12-1.30); Carboxyhemoglobin (COHb) 0.9 gm% (0.0-3.0); Hemoglobin (Hb) 11.1 g/dL (12.0-16.0); pH, Arterial 7.46 (7.35-7.45)
[2020-01-30 08:29] LABS: Puncture Site RR
[2020-01-30] MEDS: Insulin Glargine 30 UNITS in Pre-Filled Syringe 1 EACH SC SCH (08:45)
[2020-01-30] MEDS: Azithromycin 500 MG in Sodium Chloride 0.9% 250 ML 250 ML IVPB SCH (08:54)
[2020-01-30] MEDS: cefTRIAXone\\ROCEPHIN 1 GM in Sodium Chloride 0.9% 100 ML IVPB SCH (08:56)
[2020-01-30] MEDS ORDERED: Insulin Glargine 35 UNITS in Pre-Filled Syringe 1 EACH SC SCH (09:00)
[2020-01-30] MEDS: Famotidine 40 MG/5 ML Oral Suspension PER TUBE SCH ×2 (09:03→20:14)
[2020-01-30] MEDS: Enoxaparin Sodium 40 MG/0.4 ML SYRINGE SC SCH ×2 (09:03→20:14)
[2020-01-30] MEDS ORDERED: Insulin Glargine 5 UNITS in Pre-Filled Syringe 1 EACH SC SCH (09:30)
[2020-01-30] MEDS: methylPREDNISolone Sod Succ 40 MG VIAL IVP SCH ×3 (10:16→20:13)
[2020-01-30] MEDS: 1/2 NS w/KCL 20 mEq 1,000 ML IV SCH ×2 (10:30→23:35)
--- NOTE | 2020-01-30 15:45 | PDOC.EVN ---
Event Note - Event Note Event Note: Event Note: his Na is improved to 146 --due to dehydration. -on 1/2 nS. 74 year old female who presented with COVId pneumonia, desaturated overnight and required intubation talk to RN; BG quite high, --- changed to aggressive scale --changed insulin to bid doses as BG > 300 his a1c >11. will change the TF to glucerna General: patient intubated, sedated, in supine position Acute hypoxic respiratory failure secondary to COVID pneumonia - intubated,in prone position - continue ceftriaxone, azithromycin, IV steroids, tocilizumab - s/p plasma - remdesivir started -monitor LFTs, aPTT, CRP and ferritin periodically Hypernatremia - sodium elevated, will switch to 1/2 NS--------pt is dehydrated -- so conw / 2 NS -cant give D5 as already BG>300----> increased the insulin doses Type II diabetes [11.7] & Steroid induced hyperglycemia - lantus 20 bid, aggressSSI -a1c 11.7 -glucerna TF -steroid dose reduced TF - switched to glucerna. DVT prophylaxis: lovenox Code status: full code prognosis -- guarded
--- NOTE | 2020-01-30 18:14 | PRG ---
DATE OF SERVICE: 01/30/2020 SUBJECTIVE: Mick Guerra remains intubated on the vent. OBJECTIVE: VITAL SIGNS: Maximum temperature has been 99.7, pulse rate 84, blood pressure 145/65, saturations at 95%. I's and O's have been consistently positive. CHEST: Decreased breath sounds. No wheezing. CARDIAC: Normal S1 and S2. No gallops. ABDOMEN: Soft. LABORATORY DATA: White count 8000. Lytes are normal. Glucose is still elevated at 237. pO2 is 44. pCO2 36. ASSESSMENT: Respiratory failure, arthur virus pneumonia, and diabetes. PLAN: Cut back steroids, increase Lantus 35. Continue Zithromax, ceftriaxone. She has already had plasma and Remdesivir. CRITICAL CARE TIME: One-half hour. Job ID: [id number]
[2020-01-30] MEDS: Insulin Glargine 35 UNITS in Pre-Filled Syringe 1 EACH SC SCH (20:12)
[2020-01-31] MEDS: Lorazepam 2 MG/ML VIAL SLOW IVP PRN ×4 (01:13→14:55)
[2020-01-31] MEDS: Propofol 1,000 MG/100 ML VIAL IV PRN ×5 (01:15→20:35)
[2020-01-31 03:25] LABS: #Basophils 0.1 thou/uL (0.0-0.2); #Eosinphils 0.1 thou/uL (0.0-0.7); #Lymphocytes 0.5 thou/uL (1.20-3.40); #Monocytes 0.2 thou/uL (0.11-0.59); %Basophils 1.2 % (0.0-1.0); %Eosinophils 0.7 % (0.0-10.0); %Monocytes 2.1 % (0.0-10.0); Hemoglobin 11.6 g/dL (12.0-16.0); Mean Corpuscular HGB CONC 34.4 g/dL (32.0-36.0); Mean Corpuscular Volume 95.9 fL (78.0-98.0); Mean Platelet Volume 8.8 fL (7.4-10.4); Platelet Count 289 thou/uL (130-400); RBC Distribution Width 13.4 % (11.5-14.5); Red Blood Cell (RBC) Count 3.53 mill/uL (4.20-5.40); White Blood Cell (WBC) Count 8.9 thou/uL (4.8-10.8)
[2020-01-31 03:41] LABS: Anion Gap 14 mmol/L (10-20); BUN (Urea Nitrogen) 23 mg/dL (9.8-20.1); Calc. Creatinine Clearance 89 mL/min (70-130); Calcium 7.7 mg/dL (7.8-10.44); Carbon Dioxide 23 mmol/L (23-31); Chloride 106 mmol/L (98-107); Estimated GFR-MDRD 90; Glucose 222 mg/dL (83-110); Potassium 4.5 mmol/L (3.5-5.1); Sodium 138 mmol/L (136-145)
[2020-01-31] MEDS: HumaLOG 300 UNITS/3 ML VIAL SC PRN ×3 (04:06→20:24)
[2020-01-31] MEDS: cefTRIAXone\\ROCEPHIN 1 GM in Sodium Chloride 0.9% 100 ML IVPB SCH (07:14)
[2020-01-31 08:17] LABS: Actual Bicarbonate (HCO3a) 24.2 mEq/L (22-28); Base Excess (BEa) 0.1 mEq/L (-2.0 to +3.0); CO2 Tension 36.9 mmHg (35.0-45.0); Calcium, Ionized (arterial) 1.11 mmol/L (1.12-1.30); Carboxyhemoglobin (COHb) 0.6 gm% (0.0-3.0); Hemoglobin (Hb) 11.1 g/dL (12.0-16.0); O2 Tension (PaO2), arterial 61.1 mmHg (> 70.0); Potassium - ABG Lab 4.23 mmol/L (3.70-5.30); pH, Arterial 7.43 (7.35-7.45)
--- NOTE | 2020-01-31 08:32 | RAD ---
PORTABLE CHEST: Date: 01/31/2020 PROVIDED CLINICAL HISTORY: Respiratory insufficiency. FINDINGS: Comparison with 01/29/2020. Interval worsening of bilateral air space disease. Support apparatus appears stable. No evidence for pneumothorax. No evidence for large pleural effusion. IMPRESSION: Interval worsening of bilateral air space disease. POS: DANA
--- NOTE | 2020-01-31 09:39 | PRG ---
DATE OF SERVICE: 01/31/2020 SUBJECTIVE: This morning, the patient is still sedated. OBJECTIVE: VITAL SIGNS: Pulse 94, blood pressure 112/67, respiratory rate 27, 60%, 11 of PEEP with sats of 95%. I's and O's have been consistently ahead. CHEST: Decreased breath sounds. No wheezing. CARDIAC: Normal S1, S2. ABDOMEN: No masses. LABORATORY DATA: Lytes are normal. Sugar down to 152. Calcium 7.7. White count 8000, H and H 11 and 33, platelet count normal. ASSESSMENT AND PLAN: 1. Coronavirus positive pneumonia, acute respiratory distress syndrome. 2. Diabetes. 3. Encephalopathy. She is clearly not weanable. We will try 16 hours prone and 8 hours supine for the next 48 hours. Prognosis remains guarded. One-half hour of critical time. Job ID: [id number]
[2020-01-31] MEDS: Insulin Glargine 35 UNITS in Pre-Filled Syringe 1 EACH SC SCH ×2 (09:48→20:23)
[2020-01-31] MEDS: Azithromycin 500 MG in Sodium Chloride 0.9% 250 ML 250 ML IVPB SCH (09:48)
[2020-01-31] MEDS: Enoxaparin Sodium 40 MG/0.4 ML SYRINGE SC SCH ×2 (09:49→20:23)
[2020-01-31] MEDS: methylPREDNISolone Sod Succ 40 MG VIAL IVP SCH ×2 (09:49→20:24)
[2020-01-31] MEDS: Famotidine 40 MG/5 ML Oral Suspension PER TUBE SCH ×2 (09:49→20:24)
[2020-01-31] MEDS: Vecuronium 10 MG VIAL IV PRN ×2 (10:03→14:55)
[2020-01-31] MEDS: 1/2 NS w/KCL 20 mEq 1,000 ML IV SCH (12:02)
[2020-01-31 16:30] LABS: Puncture Site LRA
[2020-01-31 16:31] LABS: ALV-art Gradient 320.575 (0-20)
--- NOTE | 2020-01-31 17:03 | PDOC.EVN ---
Event Note - Event Note Event Note: d/w RN.- proned. BG better - insulin dose now 35 bid. cont'd to be on TF. his Na is improved to 146 --due to dehydration. -on 1/2 nS. 74 year old female who presented with COVId pneumonia, desaturated overnight and required intubation talk to RN; BG quite high, --- changed to aggressive scale --changed insulin to bid doses as BG > 300 his a1c >11. will change the TF to glucerna General: patient intubated, sedated, in supine position Acute hypoxic respiratory failure secondary to COVID pneumonia - intubated,in prone position - continue ceftriaxone, azithromycin, IV steroids, tocilizumab - s/p plasma - remdesivir started -monitor LFTs, aPTT, CRP and ferritin periodically Hypernatremia - sodium elevated, will switch to 1/2 NS--------pt is dehydrated -- so conw 1/ 2 NS -cant give D5 as already BG>300----> increased the insulin doses Type II diabetes [11.7] & Steroid induced hyperglycemia - lantus 20 bid-------------> 35bid now, aggress SSI -a1c 11.7 -glucerna TF -steroid dose reduced TF - switched to glucerna. DVT prophylaxis: lovenox Code status: full code prognosis -- guarded
[2020-02-01] MEDS: HumaLOG 300 UNITS/3 ML VIAL SC PRN ×4 (00:05→20:39)
[2020-02-01] MEDS ORDERED: Sterile Water 10 ML ONE (02:09)
[2020-02-01] MEDS: Lorazepam 2 MG/ML VIAL SLOW IVP PRN ×4 (02:10→20:13)
[2020-02-01] MEDS: Vecuronium 10 MG VIAL IV PRN ×6 (02:11→22:09)
[2020-02-01 02:47] LABS: Band 12 % (5-11); Eosinophils 1 % (0-10); Hemoglobin 11.1 g/dL (12.0-16.0); Lymphocytes 6 % (21-51); MDiff Complete? YES; Mean Corpuscular HGB CONC 34.9 g/dL (32.0-36.0); Mean Corpuscular Hemoglobin 33.2 pg (27.0-31.0); Mean Platelet Volume 9.1 fL (7.4-10.4); Metamyelocyte 2 % (0-0); Monocytes 1 % (0-10); Neutrophil 78 % (42-75); Nucleated RBC 2 % (0); Platelet Count 274 thou/uL (130-400); Platelet Morphology Comment Appears Adequate; RBC Distribution Width 13.4 % (11.5-14.5); Red Blood Cell (RBC) Count 3.35 mill/uL (4.20-5.40); White Blood Cell (WBC) Count 8.5 thou/uL (4.8-10.8)
[2020-02-01 03:11] LABS: Anion Gap 16 mmol/L (10-20); BUN (Urea Nitrogen) 18 mg/dL (9.8-20.1); Calc. Creatinine Clearance 90 mL/min (70-130); Calcium 7.5 mg/dL (7.8-10.44); Carbon Dioxide 21 mmol/L (23-31); Chloride 103 mmol/L (98-107); Estimated GFR-MDRD Greater than 90; Glucose 223 mg/dL (83-110); Sodium 135 mmol/L (136-145)
[2020-02-01] MEDS: Propofol 1,000 MG/100 ML VIAL IV PRN ×4 (03:17→16:28)
[2020-02-01] MEDS: 1/2 NS w/KCL 20 mEq 1,000 ML IV SCH (05:06)
--- NOTE | 2020-02-01 08:00 | RAD ---
XR Chest 1 View Portable History: Ventilated patient Comparison: Radiograph prior day Findings: Endotracheal tube tip at the level of the clavicles. Enteric tube tip gastric body. Small-moderate effusions. Lower lobe and right upper lobe airspace opacities are relatively similar. No pneumothorax. Multiple fractured midline sternotomy wires. Impression: Similar examination of the chest.
[2020-02-01] MEDS: cefTRIAXone\\ROCEPHIN 1 GM in Sodium Chloride 0.9% 100 ML IVPB SCH (08:33)
[2020-02-01] MEDS: Acetaminophen 325 MG TAB PO PRN (08:34)
[2020-02-01] MEDS: Enoxaparin Sodium 40 MG/0.4 ML SYRINGE SC SCH ×2 (08:34→20:13)
[2020-02-01] MEDS: Sodium Chloride 0.9% 1,000 ML IV SCH (08:34)
[2020-02-01] MEDS: methylPREDNISolone Sod Succ 40 MG VIAL IVP SCH ×2 (08:34→20:14)
[2020-02-01 08:37] LABS: Actual Bicarbonate (HCO3a) 25.1 mEq/L (22-28); Base Excess (BEa) 1.7 mEq/L (-2.0 to +3.0); Calcium, Ionized (arterial) 1.13 mmol/L (1.12-1.30); Carboxyhemoglobin (COHb) 0.6 gm% (0.0-3.0); Hemoglobin (Hb) 10.7 g/dL (12.0-16.0); Potassium - ABG Lab 3.99 mmol/L (3.70-5.30); pH, Arterial 7.47 (7.35-7.45)
[2020-02-01] MEDS: Insulin Glargine 35 UNITS in Pre-Filled Syringe 1 EACH SC SCH ×2 (08:38→20:14)
[2020-02-01] MEDS: Azithromycin 500 MG in Sodium Chloride 0.9% 250 ML 250 ML IVPB SCH (08:38)
[2020-02-01] MEDS: Famotidine 40 MG/5 ML Oral Suspension PER TUBE SCH ×2 (08:39→20:14)
--- NOTE | 2020-02-01 09:09 | PRG ---
DATE OF SERVICE: 02/01/2020 SUBJECTIVE: Mick Guerra this morning sedated, vented in the supine position. She was prone for 18 hours sats 99%, pulse 69, respirations 18, blood pressure 110/56. I's and O's were improved. CHEST: Decreased breath sounds. No wheezing. CARDIAC: Normal S1, S2. No gallops. ABDOMEN: No masses. LABORATORY DATA: BUN and creatinine are normal. Glucose is 210, sodium was dropped to 135. Chest x-ray still shows diffuse infiltrates. ASSESSMENT AND PLAN: 1. Coronavirus pneumonia, acute respiratory distress syndrome. 2. Diabetes. 3. Electrolyte imbalance. Switching back to normal saline continue nutrition, PT. Another 24 hours of supine position, thereafter slow wean. We will continue steroids, neb treatment. One-half hour of critical care time. Job ID: [id number]
[2020-02-01 14:13] LABS: O2 Tension (PaO2), arterial 58.1 mmHg (> 70.0); Puncture Site LRA
--- NOTE | 2020-02-01 14:42 | PDOC.EVN ---
Event Note - Event Note Event Note: d/w RN.- proned. BG better - insulin dose now 35 bid. cont'd to be on TF. his Na is improved to 146------>135 --due to dehydration. -on 08/16 nS. talk to RN; BG quite high, --- changed to aggressive scale --changed insulin to bid doses as BG > 300 his a1c >11. will change the TF to glucerna Acute hypoxic respiratory failure secondary to COVID pneumonia - intubated,in prone position - continue ceftriaxone, azithromycin, IV steroids, tocilizumab - s/p plasma - remdesivir started -monitor LFTs, aPTT, CRP and ferritin periodically Hypernatremia - resolved Type II diabetes [11.7] & Steroid induced hyperglycemia< 200 last 2 reading - lantus 20 bid-------------> 35bid now, aggress SSI -a1c 11.7 -glucerna TF -steroid dose reduced TF - switched to glucerna. DVT prophylaxis: lovenox Code status: full code prognosis -- guarded
[2020-02-02] MEDS: HumaLOG 300 UNITS/3 ML VIAL SC PRN ×4 (00:20→20:29)
[2020-02-02] MEDS: Lorazepam 2 MG/ML VIAL SLOW IVP PRN ×3 (02:40→18:07)
[2020-02-02] MEDS: Sodium Chloride 0.9% 1,000 ML IV SCH (02:40)
[2020-02-02] MEDS: Vecuronium 10 MG VIAL IV PRN ×2 (02:40→09:07)
[2020-02-02 03:35] LABS: #Eosinphils 0.1 thou/uL (0.0-0.7); #Lymphocytes 0.6 thou/uL (1.20-3.40); #Monocytes 0.3 thou/uL (0.11-0.59); #Neutrophils 7.1 thou/uL (1.40-6.50); %Basophils 0.5 % (0.0-1.0); %Eosinophils 0.7 % (0.0-10.0); %Lymphocytes 7.3 % (21.0-51.0); %Monocytes 3.8 % (0.0-10.0); %Neutrophils 87.7 % (42.0-75.0); Hemoglobin 11.3 g/dL (12.0-16.0); Mean Corpuscular HGB CONC 34.7 g/dL (32.0-36.0); Mean Corpuscular Volume 95.3 fL (78.0-98.0); Mean Platelet Volume 8.9 fL (7.4-10.4); Platelet Count 257 thou/uL (130-400); Red Blood Cell (RBC) Count 3.43 mill/uL (4.20-5.40); White Blood Cell (WBC) Count 8.1 thou/uL (4.8-10.8)
[2020-02-02 03:55] LABS: Anion Gap 15 mmol/L (10-20); BUN (Urea Nitrogen) 20 mg/dL (9.8-20.1); Calc. Creatinine Clearance 92 mL/min (70-130); Calcium 7.8 mg/dL (7.8-10.44); Carbon Dioxide 24 mmol/L (23-31); Chloride 104 mmol/L (98-107); Estimated GFR-MDRD Greater than 90; Glucose 182 mg/dL (83-110); Potassium 4.5 mmol/L (3.5-5.1); Sodium 138 mmol/L (136-145)
[2020-02-02] MEDS: Propofol 1,000 MG/100 ML VIAL IV PRN ×3 (05:03→21:33)
[2020-02-02 07:23] LABS: Actual Bicarbonate (HCO3a) 23.8 mEq/L (22-28); Base Excess (BEa) 0.6 mEq/L (-2.0 to +3.0); CO2 Tension 33.1 mmHg (35.0-45.0); Calcium, Ionized (arterial) 1.12 mmol/L (1.12-1.30); Carboxyhemoglobin (COHb) 0.5 gm% (0.0-3.0); Hemoglobin (Hb) 10.7 g/dL (12.0-16.0); O2 Tension (PaO2), arterial 90.9 mmHg (> 70.0); Potassium - ABG Lab 3.98 mmol/L (3.70-5.30); pH, Arterial 7.48 (7.35-7.45)
[2020-02-02 07:24] LABS: ALV-art Gradient 152.925 (0-20); Puncture Site RRA
--- NOTE | 2020-02-02 07:59 | RAD ---
SINGLE VIEW CHEST: Date: 02/02/2020 COMPARISON: 02/01/2020. HISTORY: Ventilated patient with respiratory failure. FINDINGS: Single view of the chest shows a normal sized cardiomediastinal silhouette. The patient is status pos t sternotomy. Lines and tubes are unchanged in position. There are stable mixed multifocal infiltrate s in the lungs. IMPRESSION: Stable exam. POS: SANTOA
[2020-02-02] MEDS: Enoxaparin Sodium 40 MG/0.4 ML SYRINGE SC SCH ×2 (09:05→20:00)
[2020-02-02] MEDS: Azithromycin 500 MG in Sodium Chloride 0.9% 250 ML 250 ML IVPB SCH (09:05)
[2020-02-02] MEDS: Insulin Glargine 35 UNITS in Pre-Filled Syringe 1 EACH SC SCH ×2 (09:05→20:29)
[2020-02-02] MEDS: Famotidine 40 MG/5 ML Oral Suspension PER TUBE SCH ×2 (09:06→20:00)
[2020-02-02] MEDS: cefTRIAXone\\ROCEPHIN 1 GM in Sodium Chloride 0.9% 100 ML IVPB SCH (10:13)
--- NOTE | 2020-02-02 10:38 | PDOC.HOSPP ---
- Subjective Encounter Date: 02/02/20 Encounter Time: 10:36 Subjective: Patient seen from a distance for COVID positive pneumonia and acute respiratory failure. She remains intubated. - Objective Vital Signs & Weight: Vital Signs (12 hours) Temp Pulse Resp BP Pulse Ox 02/02/20 08:00 99.1 F 18 100 02/02/20 06:59 72 137/70 02/02/20 05:55 18 02/02/20 04:00 98.7 F 18 02/02/20 02:58 91 156/79 H 02/02/20 02:00 18 02/02/20 00:14 85 02/02/20 00:00 98.5 F 18 02/01/20 22:43 78 122/62 Weight Admit Weight 154 lb Weight 168 lb 10.458 oz Most Recent Monitor Data Heart Rate from ECG 86 NIBP 129/65 NIBP BP-Mean 86 Respiration from ECG 18 SpO2 100 I&O: 02/01/20 02/02/20 02/03/20 06:59 06:59 06:59 Intake Total 3160 2954 100 Output Total 2440 2435 550 Balance 720 519 -450 Result Diagrams: 02/02/20 03:20 02/02/20 03:20 Additional Labs: Accuchecks 02/02/20 02/02/20 02/01/20 07:40 00:20 20:28 POC Glucose 142 H 153 H 216 H 02/01/20 02/01/20 17:17 12:02 POC Glucose 227 H 140 H Hospitalist ROS - Medication Medications: Active Medications Generic Name Dose Route Start Last Admin Trade Name Freq PRN Reason Stop Dose Admin Acetaminophen 650 mg 01/24/20 04:04 02/01/20 08:34 Tylenol PO 650 mg Q4H PRN Administration Headache/Fever/Mild Pain (1-3) Albuterol/Ipratropium 3 ml 01/27/20 19:00 02/02/20 07:04 Duoneb IPPB 3 ml [id number] GARY Administration Enoxaparin Sodium 40 mg 01/25/20 09:00 02/02/20 09:05 Lovenox SC 40 mg BID GARY Administration Famotidine 20 mg 01/25/20 21:00 02/02/20 09:06 Pepcid PER TUBE 20 mg Q12HR GARY Administration Ceftriaxone Sodium 1 gm/ 100 mls @ 200 mls/hr 01/26/20 09:00 02/02/20 10:13 Sodium Chloride IVPB 100 mls 0900 GARY Administration Azithromycin 500 mg/ Sodium 250 mls @ 250 mls/hr 01/26/20 09:00 02/02/20 09: 05 Chloride IVPB 250 mls 0900 GARY Administration Insulin Glargine 35 units/ 0.35 mls @ 0 mls/hr 01/30/20 21:00 02/02/20 09:05 Miscellaneous Medication SC 0.35 mls BID GARY Administration As Directed Sodium Chloride 1,000 mls @ 50 mls/hr 02/01/20 08:30 02/02/20 02:40 Normal Saline 0.9% IV 1,000 mls .Q20H GARY Administration Insulin Human Lispro 0 units 01/27/20 11:43 02/02/20 05:04 Humalog SC 3 unit .AGGRESSIVE SLIDING PRN Administration AGGRESSIVE SLIDING SCALE Protocol Lorazepam 2 mg 01/25/20 04:15 02/02/20 09:07 Ativan SLOW IVP 02/24/20 04:15 2 mg Q1H PRN Administration Breakthrough agitation Methylprednisolone Sodium Succinate 20 mg 01/30/20 09:00 02/01/20 20:14 Solu-Medrol IVP 20 mg BID GARY Administration Morphine Sulfate 2 mg 01/25/20 04:15 01/29/20 03:08 Morphine SLOW IVP 02/24/20 04:15 2 mg Q1H PRN Administration BREAKTHROUGH PAIN/Agitation Propofol 1,000 mg 01/25/20 04:15 02/02/20 05:03 Diprivan IV 02/24/20 04:15 1,000 mg INF PRN Administration TO ACHIEVE GOAL RASS Protocol Sodium Chloride 10 ml 01/27/20 09:00 02/02/20 09:06 Flush - Normal Saline IVF 10 ml Q12HR GARY Administration Vecuronium [place] 10 mg 01/31/20 10:00 02/02/20 09:07 Norcuron IV 10 mg Q2H PRN Administration FOR PRONING Hosp A/P (1) Acute respiratory failure with hypoxemia Code(s): J96.01 - ACUTE RESPIRATORY FAILURE WITH HYPOXIA Status: Acute (2) Pneumonia due to COVID-19 virus Code(s): U07.1 - COVID-19; J12.89 - OTHER VIRAL PNEUMONIA Status: Acute (3) Diabetes mellitus type 2 in obese Code(s): E11.69 - TYPE 2 DIABETES MELLITUS WITH OTHER SPECIFIED COMPLICATION; E66.9 - OBESITY, UNSPECIFIED Status: Chronic (4) CAD (coronary artery disease) Code(s): I25.10 - ATHSCL HEART DISEASE OF [place] CORONARY ARTERY W/O ANG PCTRS Status: Chronic - Plan * Acute respiratory failure due to COVID pneumonia- continue Rocephin and Azithromycin * Continue Ventilatory support * Continue Steroids and therapeutic dose Lovenox * DM- blood glucose is stable on Lantus and SSI * CAD- stable
[2020-02-02] MEDS: methylPREDNISolone Sod Succ 40 MG VIAL IVP SCH ×2 (11:02→20:01)
--- NOTE | 2020-02-02 12:16 | PRG ---
DATE OF SERVICE: 02/02/2020 35 minutes of critical care time. SUBJECTIVE: The patient remains intubated on mechanical ventilation. She has also made between prone and supine positions. OBJECTIVE: VITAL SIGNS: Temperature 99.1, pulse 84, blood pressure 123/65, O2 saturation 99%. HEENT: Remarkable for a superficial ulcer over her cheek from pressure. NECK: No adenopathy or JVD. LUNGS: Diffuse inspiratory crackles. CARDIAC: S1 and S2. Regular. ABDOMEN: Soft. EXTREMITIES: Trace edema. IMAGING: Her chest x-ray shows interstitial infiltrates bilaterally. LABORATORY DATA: Sodium 138, potassium 4.5, chloride 104, CO2 of 24, BUN 20, creatinine 0.6, glucose 182. PH is 7.48, pCO2 of 33, pO2 of 90, on SIMV rate 18, tidal volume 450, PEEP 11, pressure support 10, FiO2 of 40%. White blood count 8.1, hematocrit 32.7, and platelet count 257. ASSESSMENT: 1. COVID-19 pneumonia with acute respiratory failure requiring mechanical ventilation. The patient has been hospitalized since 01/23. 2. Diabetes. PLAN: I will try to slowly lower her PEEP. She can probably stay in a supine position at this point. Tube feeds have been initiated. She is on corticosteroids. Job ID: [id number]
--- NOTE | 2020-02-02 15:17 | EKG ---
Test Reason : Blood Pressure : / mmHG Vent. Rate : 107 BPM Atrial Rate : 107 BPM P-R Int : 160 ms QRS Dur : 072 ms QT Int : 338 ms P-R-T Axes : 049 030 105 degrees QTc Int : 451 ms Sinus tachycardia Possible Left atrial enlargement Abnormal ECG Confirmed by AILYN BIANCHI M.D. ([id number]), film editor supervisor ZOIE STRONG ([id number]) on 02/02/2020 3:16:40 PM Referred By: Confirmed By:AILYN BIANCHI M.D.
[2020-02-02] MEDS: Morphine 2 MG/ML SYRINGE SLOW IVP PRN (20:01)
[2020-02-03] MEDS: Lorazepam 2 MG/ML VIAL SLOW IVP PRN ×5 (00:14→21:12)
[2020-02-03] MEDS: HumaLOG 300 UNITS/3 ML VIAL SC PRN ×4 (00:31→19:20)
[2020-02-03] MEDS: Vecuronium 10 MG VIAL IV PRN (00:58)
[2020-02-03] MEDS: Morphine 2 MG/ML SYRINGE SLOW IVP PRN ×2 (00:58→05:01)
[2020-02-03] MEDS: Propofol 1,000 MG/100 ML VIAL IV PRN ×5 (02:48→22:53)
[2020-02-03 03:17] LABS: #Lymphocytes 0.6 thou/uL (1.20-3.40); #Monocytes 0.2 thou/uL (0.11-0.59); #Neutrophils 6.7 thou/uL (1.40-6.50); %Basophils 0.3 % (0.0-1.0); %Eosinophils 0.4 % (0.0-10.0); %Lymphocytes 7.4 % (21.0-51.0); %Monocytes 2.7 % (0.0-10.0); %Neutrophils 89.2 % (42.0-75.0); Hemoglobin 10.4 g/dL (12.0-16.0); Mean Corpuscular HGB CONC 34.3 g/dL (32.0-36.0); Mean Corpuscular Hemoglobin 32.9 pg (27.0-31.0); Mean Corpuscular Volume 95.9 fL (78.0-98.0); Mean Platelet Volume 9.1 fL (7.4-10.4); Platelet Count 216 thou/uL (130-400); RBC Distribution Width 14.1 % (11.5-14.5); Red Blood Cell (RBC) Count 3.16 mill/uL (4.20-5.40); White Blood Cell (WBC) Count 7.6 thou/uL (4.8-10.8)
[2020-02-03 03:40] LABS: Anion Gap 15 mmol/L (10-20); BUN (Urea Nitrogen) 22 mg/dL (9.8-20.1); Calc. Creatinine Clearance 98 mL/min (70-130); Calcium 7.7 mg/dL (7.8-10.44); Carbon Dioxide 23 mmol/L (23-31); Chloride 108 mmol/L (98-107); Estimated GFR-MDRD Greater than 90; Glucose 173 mg/dL (83-110); Potassium 4.2 mmol/L (3.5-5.1); Sodium 142 mmol/L (136-145)
[2020-02-03 08:19] LABS: Actual Bicarbonate (HCO3a) 23.7 mEq/L (22-28); Base Excess (BEa) 0.5 mEq/L (-2.0 to +3.0); CO2 Tension 32.9 mmHg (35.0-45.0); Calcium, Ionized (arterial) 1.15 mmol/L (1.12-1.30); Carboxyhemoglobin (COHb) 0.4 gm% (0.0-3.0); Hemoglobin (Hb) 10.4 g/dL (12.0-16.0); O2 Tension (PaO2), arterial 74.1 mmHg (> 70.0); Potassium - ABG Lab 3.83 mmol/L (3.70-5.30); pH, Arterial 7.48 (7.35-7.45)
[2020-02-03] MEDS: cefTRIAXone\\ROCEPHIN 1 GM in Sodium Chloride 0.9% 100 ML IVPB SCH (08:26)
[2020-02-03] MEDS: Bacteriostatic Water 30 ML VIAL FS PRN ×2 (08:27→21:12)
[2020-02-03] MEDS: methylPREDNISolone Sod Succ 40 MG VIAL IVP SCH ×2 (08:27→21:12)
[2020-02-03] MEDS: Azithromycin 500 MG in Sodium Chloride 0.9% 250 ML 250 ML IVPB SCH (08:34)
[2020-02-03] MEDS: Insulin Glargine 35 UNITS in Pre-Filled Syringe 1 EACH SC SCH ×2 (08:35→21:13)
[2020-02-03] MEDS: Famotidine 40 MG/5 ML Oral Suspension PER TUBE SCH ×2 (08:35→21:12)
[2020-02-03] MEDS: Enoxaparin Sodium 40 MG/0.4 ML SYRINGE SC SCH ×2 (08:35→21:13)
[2020-02-03 08:57] LABS: ALV-art Gradient 169.975 (0-20); Puncture Site LR
--- NOTE | 2020-02-03 12:34 | PRG ---
DATE OF SERVICE: 02/03/2020 35 minutes of critical care time. SUBJECTIVE: The patient remains intubated on mechanical ventilation. There have been no acute changes overnight. OBJECTIVE: VITAL SIGNS: Temperature 98.0, pulse 78, blood pressure 124/61, and O2 sat 99%. HEENT: Remarkable for a pressure ulcer over her left cheek, which appears to be healing. She has hypertrophy tongue. NECK: No adenopathy or JVD. LUNGS: Diffuse crackles. CARDIAC: S1 and S2, regular. ABDOMEN: Soft. EXTREMITIES: Trace edema. LABORATORY DATA: White blood cell count 7.6, hematocrit 30, and platelet count 216. PH 7.48, pCO2 of 32, pO2 of 74 on SIMV rate 18, tidal volume 450, PEEP 10, pressure support 10, and FiO2 40%. Sodium 142, potassium 4.2, chloride 108, CO2 of 23, BUN 22, creatinine 0.6, and glucose 173. ASSESSMENT: 1. COVID-19 pneumonia with slow improvement in respiratory status. 2. Acute hypoxic respiratory failure. 3. Diabetes mellitus. PLAN: 1. I decreased her PEEP from 10 to 8. I have decreased her respiratory rate down to 16. 2. She has been kept in the supine position without any difficulty in last 48 hours. 3. Given that nothing is growing out of her cultures, I would go ahead and stop the Rocephin and azithromycin since she has had 7 days of both. 4. Continue the methylprednisolone. Job ID: [id number]
--- NOTE | 2020-02-03 17:39 | PDOC.HOSPP ---
- Subjective Encounter Date: 02/03/20 Encounter Time: 17:37 Subjective: Ms. Guerra was seen today from a distance in follow-up of COVID pneumonia, She is intubated, and sedated. No complaints voiced by staff. - Objective Vital Signs & Weight: Vital Signs (12 hours) Temp Pulse Resp BP Pulse Ox 02/03/20 16:00 98.1 F 19 02/03/20 14:48 74 151/65 H 02/03/20 14:00 16 02/03/20 12:07 73 16 98 02/03/20 12:00 98.2 F 18 02/03/20 11:26 79 129/63 02/03/20 10:00 18 02/03/20 08:06 82 18 97 02/03/20 08:00 98.0 F 18 97 02/03/20 07:56 68 139/65 02/03/20 06:00 18 Weight Admit Weight 154 lb Weight 170 lb 3.15 oz Most Recent Monitor Data Heart Rate from ECG 80 NIBP 138/60 NIBP BP-Mean 86 Respiration from ECG 7 SpO2 96 I&O: 02/02/20 02/03/20 02/04/20 06:59 06:59 06:59 Intake Total 2954 3299 1924 Output Total 2435 2880 1380 Balance 519 419 544 Result Diagrams: 02/03/20 03:00 02/03/20 03:00 Additional Labs: Accuchecks 02/03/20 02/03/20 02/03/20 16:47 11:33 08:43 POC Glucose 190 H 150 H 139 H 02/03/20 02/02/20 00:13 20:15 POC Glucose 197 H 198 H Hospitalist ROS - Medication Medications: Active Medications Generic Name Dose Route Start Last Admin Trade Name Freq PRN Reason Stop Dose Admin Acetaminophen 650 mg 01/24/20 04:04 02/01/20 08:34 Tylenol PO 650 mg Q4H PRN Administration Headache/Fever/Mild Pain (1-3) Albuterol/Ipratropium 3 ml 01/27/20 19:00 02/03/20 12:07 Duoneb IPPB 3 ml [id number] GARY Administration Enoxaparin Sodium 40 mg 01/25/20 09:00 02/03/20 08:35 Lovenox SC 40 mg BID GARY Administration Famotidine 20 mg 01/25/20 21:00 02/03/20 08:35 Pepcid PER TUBE 20 mg Q12HR GARY Administration Insulin Glargine 35 units/ 0.35 mls @ 0 mls/hr 01/30/20 21:00 02/03/20 08:35 Miscellaneous Medication SC 0.35 mls BID GARY Administration As Directed Sodium Chloride 1,000 mls @ 50 mls/hr 02/01/20 08:30 02/03/20 00:00 Normal Saline 0.9% IV 1,000 mls .Q20H GARY Administration Insulin Human Lispro 0 units 01/27/20 11:43 02/03/20 17:14 Humalog SC 3 unit .AGGRESSIVE SLIDING PRN Administration AGGRESSIVE SLIDING SCALE Protocol Lorazepam 2 mg 01/25/20 04:15 02/03/20 13:31 Ativan SLOW IVP 02/24/20 04:15 2 mg Q1H PRN Administration Breakthrough agitation Methylprednisolone Sodium Succinate 20 mg 01/30/20 09:00 02/03/20 08:27 Solu-Medrol IVP 20 mg BID GARY Administration Morphine Sulfate 2 mg 01/25/20 04:15 02/03/20 05:01 Morphine SLOW IVP 02/24/20 04:15 2 mg Q1H PRN Administration BREAKTHROUGH PAIN/Agitation Propofol 1,000 mg 01/25/20 04:15 02/03/20 13:27 Diprivan IV 02/24/20 04:15 1,000 mg INF PRN Administration TO ACHIEVE GOAL RASS Protocol Sodium Chloride 10 ml 01/27/20 09:00 02/03/20 08:35 Flush - Normal Saline IVF 10 ml Q12HR GARY Administration Sterile Water 1 ml 01/24/20 11:25 02/03/20 08:27 Bacteriostatic Water FS 1 ml PRN PRN Administration RECONSTITUTION Vecuronium [place] 10 mg 01/31/20 10:00 02/03/20 00:58 Norcuron IV 10 mg Q2H PRN Administration FOR PRONING - Exam Eye: PERRL Hosp A/P (1) Acute respiratory failure with hypoxemia Code(s): J96.01 - ACUTE RESPIRATORY FAILURE WITH HYPOXIA Status: Acute (2) Pneumonia due to COVID-19 virus Code(s): U07.1 - COVID-19; J12.89 - OTHER VIRAL PNEUMONIA Status: Acute (3) Diabetes mellitus type 2 in obese Code(s): E11.69 - TYPE 2 DIABETES MELLITUS WITH OTHER SPECIFIED COMPLICATION; E66.9 - OBESITY, UNSPECIFIED Status: Chronic (4) CAD (coronary artery disease) Code(s): I25.10 - ATHSCL HEART DISEASE OF [place] CORONARY ARTERY W/O ANG PCTRS Status: Chronic - Plan * Acute respiratory failure due to COVID pneumonia- continue Rocephin and Azithromycin * Continue Ventilatory support as per PCCM recommendations * Continue Steroids and therapeutic dose Lovenox * DM- blood glucose is stable on Lantus and SSI * CAD- stable
[2020-02-03] MEDS: Sodium Chloride 0.9% 1,000 ML IV SCH ×2 (21:00)
[2020-02-04] MEDS: Morphine 2 MG/ML SYRINGE SLOW IVP PRN (00:14)
[2020-02-04] MEDS: Propofol 1,000 MG/100 ML VIAL IV PRN ×5 (03:21→20:48)
[2020-02-04] MEDS: Lorazepam 2 MG/ML VIAL SLOW IVP PRN (03:21)
[2020-02-04 03:59] LABS: #Basophils 0.1 thou/uL (0.0-0.2); #Eosinphils 0.1 thou/uL (0.0-0.7); #Lymphocytes 0.5 thou/uL (1.20-3.40); #Monocytes 0.3 thou/uL (0.11-0.59); #Neutrophils 6.7 thou/uL (1.40-6.50); %Basophils 0.7 % (0.0-1.0); %Eosinophils 1.2 % (0.0-10.0); %Lymphocytes 6.3 % (21.0-51.0); %Monocytes 3.7 % (0.0-10.0); %Neutrophils 88.1 % (42.0-75.0); Hemoglobin 10.5 g/dL (12.0-16.0); Mean Corpuscular HGB CONC 34.1 g/dL (32.0-36.0); Mean Corpuscular Hemoglobin 32.9 pg (27.0-31.0); Mean Corpuscular Volume 96.5 fL (78.0-98.0); Mean Platelet Volume 9.3 fL (7.4-10.4); Platelet Count 196 thou/uL (130-400); RBC Distribution Width 14.3 % (11.5-14.5); Red Blood Cell (RBC) Count 3.18 mill/uL (4.20-5.40); White Blood Cell (WBC) Count 7.6 thou/uL (4.8-10.8)
[2020-02-04 04:18] LABS: Anion Gap 14 mmol/L (10-20); BUN (Urea Nitrogen) 17 mg/dL (9.8-20.1); Calc. Creatinine Clearance 104 mL/min (70-130); Calcium 7.7 mg/dL (7.8-10.44); Carbon Dioxide 24 mmol/L (23-31); Chloride 108 mmol/L (98-107); Estimated GFR-MDRD Greater than 90; Glucose 138 mg/dL (83-110); Potassium 4.1 mmol/L (3.5-5.1); Sodium 142 mmol/L (136-145)
[2020-02-04 07:59] LABS: Actual Bicarbonate (HCO3a) 24.9 mEq/L (22-28); Analyzer IN Cardio OR; CO2 Tension 37.2 mmHg (35.0-45.0); Calcium, Ionized (arterial) 1.15 mmol/L (1.12-1.30); Carboxyhemoglobin (COHb) 0.5 gm% (0.0-3.0); Hemoglobin (Hb) 10.4 g/dL (12.0-16.0); O2 Tension (PaO2), arterial 79.4 mmHg (> 70.0); Potassium - ABG Lab 3.94 mmol/L (3.70-5.30); pH, Arterial 7.44 (7.35-7.45)
[2020-02-04 08:23] LABS: Puncture Site RRA
[2020-02-04] MEDS: methylPREDNISolone Sod Succ 40 MG VIAL IVP SCH ×2 (08:39→20:50)
[2020-02-04] MEDS: Insulin Glargine 35 UNITS in Pre-Filled Syringe 1 EACH SC SCH ×2 (08:40→20:49)
[2020-02-04] MEDS: Famotidine 40 MG/5 ML Oral Suspension PER TUBE SCH ×2 (08:40→20:49)
[2020-02-04] MEDS: Enoxaparin Sodium 40 MG/0.4 ML SYRINGE SC SCH ×2 (08:40→20:50)
--- NOTE | 2020-02-04 09:09 | PRG ---
DATE OF SERVICE: 02/04/2020 SUBJECTIVE: Mick Guerra, this morning, remains intubated in the vent, sedated. OBJECTIVE: VITAL SIGNS: Pulse 79, blood pressure 8 of PEEP, 40%, sats 100%, I's and O's have been consistently ahead. CHEAT: Decreased breath sounds. No wheezing. CARDIAC: Normal S1, S2. No gallops. ABDOMEN: Soft. LABORATORY DATA: White count 7000. Lytes are normal. Platelet count is normal. PO2 of 79, pCO2 rate of 14, 40%, and PEEP of 8. X-ray still showing bilateral infiltrates. ASSESSMENT AND PLAN: Coronavirus pneumonia, respiratory failure, diabetes, encephalopathy. Continue low-dose steroids. PT, supportive care. Discontinue paralytics. Continue supine position. One-half hour of critical care time. Job ID: [id number]
[2020-02-04] MEDS: Sodium Chloride 0.9% 1,000 ML IV SCH (16:01)
[2020-02-04] MEDS: HumaLOG 300 UNITS/3 ML VIAL SC PRN (16:39)
[2020-02-04] MEDS: Bacteriostatic Water 30 ML VIAL FS PRN (20:48)
[2020-02-05] MEDS: Propofol 1,000 MG/100 ML VIAL IV PRN ×4 (02:03→19:39)
[2020-02-05 02:20] LABS: #Eosinphils 0.1 thou/uL (0.0-0.7); #Lymphocytes 0.4 thou/uL (1.20-3.40); #Monocytes 0.3 thou/uL (0.11-0.59); #Neutrophils 5.4 thou/uL (1.40-6.50); %Lymphocytes 6.7 % (21.0-51.0); %Monocytes 5.2 % (0.0-10.0); %Neutrophils 87.2 % (42.0-75.0); Hemoglobin 10.3 g/dL (12.0-16.0); Mean Corpuscular HGB CONC 33.3 g/dL (32.0-36.0); Mean Corpuscular Hemoglobin 32.3 pg (27.0-31.0); Mean Corpuscular Volume 96.8 fL (78.0-98.0); Mean Platelet Volume 9.5 fL (7.4-10.4); Platelet Count 192 thou/uL (130-400); RBC Distribution Width 14.4 % (11.5-14.5); Red Blood Cell (RBC) Count 3.18 mill/uL (4.20-5.40); White Blood Cell (WBC) Count 6.2 thou/uL (4.8-10.8)
[2020-02-05 03:52] LABS: Anion Gap 13 mmol/L (10-20); BUN (Urea Nitrogen) 15 mg/dL (9.8-20.1); Calc. Creatinine Clearance 112 mL/min (70-130); Calcium 7.7 mg/dL (7.8-10.44); Carbon Dioxide 24 mmol/L (23-31); Chloride 109 mmol/L (98-107); Estimated GFR-MDRD Greater than 90; Glucose 101 mg/dL (83-110); Potassium 3.9 mmol/L (3.5-5.1); Sodium 142 mmol/L (136-145)
[2020-02-05 07:36] LABS: Actual Bicarbonate (HCO3a) 29.8 mEq/L (22-28); Base Excess (BEa) 5.1 mEq/L (-2.0 to +3.0); CO2 Tension 44.7 mmHg (35.0-45.0); Calcium, Ionized (arterial) 1.16 mmol/L (1.12-1.30); Carboxyhemoglobin (COHb) 0.4 gm% (0.0-3.0); Hemoglobin (Hb) 9.8 g/dL (12.0-16.0); O2 Tension (PaO2), arterial 88.4 mmHg (> 70.0); Potassium - ABG Lab 3.58 mmol/L (3.70-5.30); pH, Arterial 7.44 (7.35-7.45)
[2020-02-05 07:37] LABS: ALV-art Gradient 140.925 (0-20); Puncture Site LRA
[2020-02-05 08:32] LABS: Glucose POC Confirmation 49 mg/dl (83-110)
[2020-02-05] MEDS: methylPREDNISolone Sod Succ 40 MG VIAL IVP SCH ×2 (08:38→20:51)
[2020-02-05] MEDS: Enoxaparin Sodium 40 MG/0.4 ML SYRINGE SC SCH ×2 (08:38→20:52)
[2020-02-05] MEDS: Famotidine 40 MG/5 ML Oral Suspension PER TUBE SCH ×2 (08:39→20:51)
[2020-02-05] MEDS: Insulin Glargine 35 UNITS in Pre-Filled Syringe 1 EACH SC SCH (08:40)
[2020-02-05] MEDS ORDERED: Insulin Glargine 30 UNITS in Pre-Filled Syringe 1 EACH SC SCH (09:00)
[2020-02-05] MEDS ORDERED: fentaNYL Citrate/PF 2,000 MCG in Sodium Chloride 0.9% 60 ML IV SCH (09:45)
[2020-02-05] MEDS ORDERED: Fentanyl BOLUS 250 ML IVPB PRN (09:45)
[2020-02-05] MEDS: Sodium Chloride 0.9% 1,000 ML IV SCH (13:11)
--- NOTE | 2020-02-05 13:19 | PRG ---
DATE OF SERVICE: 02/05/2020 SUBJECTIVE: Mick Guerra, this morning, she is still agitated on the vent. OBJECTIVE: VITAL SIGNS: Respirations 24, saturations 100%, . Blood pressure 130/61, respiratory rate 18. I's and O's have been good. CHEST: Decreased breath sounds. No wheezing. CARDIAC: Normal S1 and S2. No gallops. ABDOMEN: Soft. LABORATORY DATA: White count 6000, platelet count is normal. PO2 is 88, pCO2 44, 40%, PEEP of 5, and 450 tidal volume. Lytes are normal. Blood sugar was low. ASSESSMENT AND PLAN: Multiorgan failure, coronavirus pneumonia, respiratory failure, diabetes, severe deconditioning, encephalopathy, and previous electrolyte imbalance. We are going to try and decrease sedation and decrease Lantus. Continue steroids. Hopefully, we can try and extubate in the next 24 to 48 hours. One-half hour of critical time. Job ID: [id number]
--- NOTE | 2020-02-05 16:39 | PDOC.HOSPP ---
- Subjective Encounter Date: 02/04/20 Encounter Time: 11:00 Subjective: Ms. Guerra was seen from a distance for COVID positive pneumonia. Patient is intubated, and sedated. - Objective Vital Signs & Weight: Vital Signs (12 hours) Pulse Resp BP 02/05/20 14:45 95 172/89 H 02/05/20 11:25 68 170/80 H 02/05/20 07:25 73 117/57 L 02/05/20 05:57 24 H Weight Admit Weight 154 lb Weight 171 lb 8.314 oz Most Recent Monitor Data Heart Rate from ECG 93 NIBP 144/64 NIBP BP-Mean 90 Respiration from ECG 22 SpO2 100 I&O: 02/04/20 02/05/20 02/06/20 06:59 06:59 06:59 Intake Total 3512 2110 240 Output Total 2920 3170 Balance 592 -1060 240 Result Diagrams: 02/05/20 02:10 02/05/20 02:10 Additional Labs: Accuchecks 02/05/20 02/05/20 02/05/20 11:06 08:51 07:43 POC Glucose 99 106 52 L* 02/05/20 02/04/20 02/04/20 03:57 23:43 19:37 POC Glucose 96 83 148 H Hospitalist ROS - Medication Medications: Active Medications Generic Name Dose Route Start Last Admin Trade Name Freq PRN Reason Stop Dose Admin Acetaminophen 650 mg 01/24/20 04:04 02/01/20 08:34 Tylenol PO 650 mg Q4H PRN Administration Headache/Fever/Mild Pain (1-3) Albuterol/Ipratropium 3 ml 01/27/20 19:00 02/05/20 14:45 Duoneb IPPB 3 ml [id number] GARY Administration Dextrose/Water 25 gm 01/24/20 04:04 02/05/20 07:51 Dextrose 50% SLOW IVP 25 gm PRN PRN Administration Hypoglycemia Enoxaparin Sodium 40 mg 01/25/20 09:00 02/05/20 08:38 Lovenox SC 40 mg BID GARY Administration Famotidine 20 mg 01/25/20 21:00 02/05/20 08:39 Pepcid PER TUBE 20 mg Q12HR GARY Administration Sodium Chloride 1,000 mls @ 50 mls/hr 02/01/20 08:30 02/05/20 13:11 Normal Saline 0.9% IV 1,000 mls .Q20H GARY Administration Insulin Human Lispro 0 units 01/27/20 11:43 02/04/20 16:39 Humalog SC 3 unit .AGGRESSIVE SLIDING PRN Administration AGGRESSIVE SLIDING SCALE Protocol Methylprednisolone Sodium Succinate 20 mg 01/30/20 09:00 02/05/20 08:38 Solu-Medrol IVP 20 mg BID GARY Administration Propofol 1,000 mg 01/25/20 04:15 02/05/20 13:28 Diprivan IV 02/24/20 04:15 1,000 mg INF PRN Administration TO ACHIEVE GOAL RASS Protocol Sodium Chloride 10 ml 01/27/20 09:00 02/05/20 08:41 Flush - Normal Saline IVF 10 ml Q12HR GARY Administration Sterile Water 1 ml 01/24/20 11:25 02/04/20 20:48 Bacteriostatic Water FS 1 ml PRN PRN Administration RECONSTITUTION - Exam Eye: PERRL, anicteric sclera Hosp A/P (1) Acute respiratory failure with hypoxemia Code(s): J96.01 - ACUTE RESPIRATORY FAILURE WITH HYPOXIA Status: Acute (2) Pneumonia due to COVID-19 virus Code(s): U07.1 - COVID-19; J12.89 - OTHER VIRAL PNEUMONIA Status: Acute (3) Diabetes mellitus type 2 in obese Code(s): E11.69 - TYPE 2 DIABETES MELLITUS WITH OTHER SPECIFIED COMPLICATION; E66.9 - OBESITY, UNSPECIFIED Status: Chronic (4) CAD (coronary artery disease) Code(s): I25.10 - ATHSCL HEART DISEASE OF [place] CORONARY ARTERY W/O ANG PCTRS Status: Chronic - Plan * Acute respiratory failure due to COVID pneumonia- continue Rocephin and Azithromycin * Continue Ventilatory support as per PCCM recommendations * Continue Steroids and therapeutic dose Lovenox * DM- blood glucose is stable on Lantus and SSI * CAD- stable
[2020-02-05] MEDS: HumaLOG 300 UNITS/3 ML VIAL SC PRN ×2 (17:59→19:38)
[2020-02-05] MEDS: Bacteriostatic Water 30 ML VIAL FS PRN (20:51)
[2020-02-05] MEDS: Insulin Glargine 15 UNITS in Pre-Filled Syringe 1 EACH SC SCH (20:52)
[2020-02-05] MEDS: Morphine 2 MG/ML SYRINGE SLOW IVP PRN (20:52)
[2020-02-06 03:20] LABS: #Lymphocytes 0.4 thou/uL (1.20-3.40); #Monocytes 0.3 thou/uL (0.11-0.59); #Neutrophils 5.4 thou/uL (1.40-6.50); %Basophils 0.5 % (0.0-1.0); %Eosinophils 0.5 % (0.0-10.0); %Lymphocytes 6.7 % (21.0-51.0); %Monocytes 4.9 % (0.0-10.0); %Neutrophils 87.3 % (42.0-75.0); Hemoglobin 9.9 g/dL (12.0-16.0); Mean Corpuscular HGB CONC 33.1 g/dL (32.0-36.0); Mean Corpuscular Volume 96.9 fL (78.0-98.0); Mean Platelet Volume 9.3 fL (7.4-10.4); Platelet Count 181 thou/uL (130-400); RBC Distribution Width 14.2 % (11.5-14.5); Red Blood Cell (RBC) Count 3.09 mill/uL (4.20-5.40); White Blood Cell (WBC) Count 6.2 thou/uL (4.8-10.8)
[2020-02-06 03:39] LABS: Anion Gap 9 mmol/L (10-20); BUN (Urea Nitrogen) 18 mg/dL (9.8-20.1); Calc. Creatinine Clearance 109 mL/min (70-130); Calcium 7.7 mg/dL (7.8-10.44); Carbon Dioxide 29 mmol/L (23-31); Chloride 106 mmol/L (98-107); Estimated GFR-MDRD Greater than 90; Glucose 167 mg/dL (83-110); Potassium 4.3 mmol/L (3.5-5.1); Sodium 140 mmol/L (136-145)
[2020-02-06] MEDS: HumaLOG 300 UNITS/3 ML VIAL SC PRN ×2 (04:26→19:32)
[2020-02-06 08:33] LABS: Actual Bicarbonate (HCO3a) 30.3 mEq/L (22-28); Base Excess (BEa) 5.4 mEq/L (-2.0 to +3.0); CO2 Tension 45.5 mmHg (35.0-45.0); Calcium, Ionized (arterial) 1.15 mmol/L (1.12-1.30); Carboxyhemoglobin (COHb) 1.2 gm% (0.0-3.0); Hemoglobin (Hb) 11.6 g/dL (12.0-16.0); O2 Tension (PaO2), arterial 66.3 mmHg (> 70.0); Potassium - ABG Lab 4.13 mmol/L (3.70-5.30); pH, Arterial 7.44 (7.35-7.45)
[2020-02-06 08:34] LABS: ALV-art Gradient 162.025 (0-20); Puncture Site LR
[2020-02-06] MEDS: Famotidine 40 MG/5 ML Oral Suspension PER TUBE SCH ×2 (08:56→20:17)
[2020-02-06] MEDS: Insulin Glargine 15 UNITS in Pre-Filled Syringe 1 EACH SC SCH ×2 (08:56→20:19)
[2020-02-06] MEDS: Sodium Chloride 0.9% 1,000 ML IV SCH (08:56)
[2020-02-06] MEDS: Enoxaparin Sodium 40 MG/0.4 ML SYRINGE SC SCH ×2 (08:57→20:18)
[2020-02-06] MEDS: methylPREDNISolone Sod Succ 40 MG VIAL IVP SCH ×2 (08:57→20:18)
--- NOTE | 2020-02-06 09:48 | PRG ---
DATE OF SERVICE: 02/06/2020 SUBJECTIVE: This morning, remains in the ICU, still encephalopathic. OBJECTIVE: VITAL SIGNS: Pulse respiratory rate 23, blood pressure . CHEST: Bilateral rhonchi and crackles. CARDIAC: Normal S1, S2. No gallops. ABDOMEN: No masses. LABORATORY DATA: White count 6000, H and H 9 and 30. PO2 is 66, pCO2 is 45, pH of 7.44, PEEP of 5, rate of 8, 40%. Lytes are normal. Blood sugar is now 129. IMPRESSION: 1. Coronavirus positive pneumonia, status post plasma therapy. 2. Diabetes. 3. Encephalopathy. 4. Acute respiratory distress syndrome. PLAN: She is still not weanable. I discussed with the granddaughter. They are going to discuss with other family members regarding ongoing care. She is going to probably require a trach and a PEG next week since she is not weanable. One-half hour of critical care time. Job ID: [id number]
--- NOTE | 2020-02-06 09:53 | RAD ---
CHEST 1 VIEW: INDICATION: History of intubation. COMPARISON: Prior exam dated 02/02/2020. FINDINGS: Bilateral airspace disease persists. Midline sternotomy wires, ET tube, and gastric catheter are unc hanged. No pneumothorax is evident. Vascular calcifications of the aortic arch are similar-appearin g. No pneumothorax is evident. Osseous structures are similar-appearing. IMPRESSION: Stable exam. POS: BH
[2020-02-06] MEDS: Morphine 2 MG/ML SYRINGE SLOW IVP PRN ×2 (11:01→20:18)
--- NOTE | 2020-02-06 12:15 | PDOC.PALCO ---
Palliative Care Consult - Consult Details Requesting Physician: Dr Soni Reason for Consult: goals of care, family support, complex decision-making - Pertinent HPI 74 year old female who presented to the emergency room for altered mental status , hypotension and hyperglycemia. Exposed to several Covid positive family members. Admitted for medical management, was identified as Covid positive. Continued decline and required subsequent intubation for respiratory support. Transitioned to CCU. - Pertinent PMH Diabetes, CAD - Social History Smoking Status: Never smoker Smoking: no tobacco exposure Alcohol Use: none Drug Use History: none Living Situation: - Medications MAR Reviewed: Yes - Allergies Allergies/Adverse Reactions: Allergies Allergy/AdvReac Type Severity Reaction Status Date / Time No Known Drug Allergies Allergy Verified 01/24/20 17:13 - Subjective Mechanical ventilation, responds to gentle stimulation - ROS Non Response: due to endotracheal tube, due to mental status - Objective Vital Signs: Vital Signs - Most Recent Temp Pulse Resp BP Pulse Ox 98.6 F 84 22 H 135/73 95 02/06/20 09:00 02/06/20 08:45 02/06/20 10:00 02/06/20 00:10 02/06/20 08:45 Palliative Performance Scale: 20 - Advance Directives Medical Power of [employer] Ro[employer]er: No filled out/ as [facility] - Physical Exam Constitutional: encephalitic, ill appearing HEENT: moist MMs Respiratory: diminished lung sound Deviation from normal: mechanical ventilation Cardiovascular: RRR Gastrointestinal: soft, non-tender, positive bowel sounds Genitourinary: zee catheter Musculoskeletal: edema present, diffuse muscle atrophy Neurology: moves all 4 limbs Skin: cap refill <2 seconds, fragile Deviation from normal: pallor to lower ext Deviation from normal: encephalopathic - Problem List (1) Palliative care encounter Code(s): Z51.5 - ENCOUNTER FOR PALLIATIVE CARE Current Visit: Yes Status: Acute (2) Acute respiratory failure with hypoxemia Code(s): J96.01 - ACUTE RESPIRATORY FAILURE WITH HYPOXIA Current Visit: Yes Status: Acute (3) Pneumonia due to COVID-19 virus Code(s): U07.1 - COVID-19; J12.89 - OTHER VIRAL PNEUMONIA Current Visit: Yes Status: Acute (4) CAD (coronary artery disease) Code(s): I25.10 - ATHSCL HEART DISEASE OF [place] CORONARY ARTERY W/O ANG PCTRS Current Visit: Yes Status: Chronic (5) Diabetes mellitus type 2 in obese Code(s): E11.69 - TYPE 2 DIABETES MELLITUS WITH OTHER SPECIFIED COMPLICATION; E66.9 - OBESITY, UNSPECIFIED Current Visit: Yes Status: Chronic - Plan/Recommendations Plan: Introduced Palliative Care to patient granddaughter who is family spokes person. Reviewed current health status and discussed "Hope for the best and plan for the worst". Hopeful for successful extubation, however discussed that depending on progross over the next few days consideration to Trach/Peg may need to be discussed. Answered questions related to Trach/Peg. Granddaughter states that what she knows is her grandmother never wanted to live in a facility for any period of time. Patient living, Mrs Guerra has 6 living children. Prior to admission she and her lived with one of her daughters. Discussed with Nallely, patient granddaughter that patient Jorge Sam is her surrogate decision maker as per [facility] but that he can designate another if he chooses. Offered opportunity for family meeting via Zoom if needed to communicate with family in relation to complex decision such as Trach/Peg or if needed for lack of improvement or decline. Therapeutic listening/emotional support. Answered all questions. Spiritual care consult placed [60] minutes spent on this encounter with >50% of the time in counseling and coordination of care. Thank you for this very appropriate consult.
[2020-02-06] MEDS ORDERED: Labetalol HCl 100 MG/20 ML VIAL SLOW IVP PRN (12:37)
[2020-02-06] MEDS ORDERED: Morphine 4 MG/ML VIAL SLOW IVP PRN (12:49)
[2020-02-06] MEDS ORDERED: Lorazepam 2 MG/ML VIAL SLOW IVP SCH (13:00)
[2020-02-06] MEDS: hydrALAZINE 20 MG/ML VIAL SLOW IVP PRN (13:17)
--- NOTE | 2020-02-06 15:21 | PDOC.FMACP ---
Advance Care Planning - Problem (1) Palliative care encounter Status: Acute Code(s): Z51.5 - ENCOUNTER FOR PALLIATIVE CARE (2) Acute respiratory failure with hypoxemia Status: Acute Code(s): J96.01 - ACUTE RESPIRATORY FAILURE WITH HYPOXIA (3) Pneumonia due to COVID-19 virus Status: Acute Code(s): U07.1 - COVID-19; J12.89 - OTHER VIRAL PNEUMONIA (4) CAD (coronary artery disease) Status: Chronic Code(s): I25.10 - ATHSCL HEART DISEASE OF [place] CORONARY ARTERY W/O ANG PCTRS (5) Diabetes mellitus type 2 in obese Status: Chronic Code(s): E11.69 - TYPE 2 DIABETES MELLITUS WITH OTHER SPECIFIED COMPLICATION; E66.9 - OBESITY, UNSPECIFIED - Note Participants: family, palliative care Summary: Palliative Care introduced Advanced Care Planning with patient granddaughter Nallely who is the family spokesperson, she was allowed an opportunity to decline. The diagnosis, prognosis and goals of care were discussed. Mrs Guerra does not have a [facility] designated. We discussed that as per [place] Law her Jorge Sam is the surrogate decision maker. Mrs Guerra also has 6 living children. Family wishes for the time for Mrs Guerra to remain with full resuscitation measures. Discussed that this may be revisited depending on progress or lack of. Also discussed options of potential need for Trach/Peg. Granddaughter expressed that her grandmother has states in the past that she would never want to live in a [facility]cf[facility]/assisted living. Education in relation to all decisions that they may need to make on the behalf of Mrs Guerra should reflect her wishes if she could speak. All questions were answered. The Palliative Care Team will continue to assist with completion of forms that are needed as well as revisit Goal of Care. *Remain full resuscitation * Jorge Sam is surrogate decision maker/Nallely the granddaughter is serving as hub for communication for family. *Zoom meeting offered to discuss Goal of Care if decline or need to discuss Trach/Peg Time Spent (mins): 20
[2020-02-06] MEDS: Bacteriostatic Water 30 ML VIAL FS PRN (20:17)
[2020-02-07] MEDS: Lorazepam 2 MG/ML VIAL SLOW IVP PRN ×2 (00:59→21:23)
[2020-02-07 03:32] LABS: #Lymphocytes 0.7 thou/uL (1.20-3.40); #Monocytes 0.4 thou/uL (0.11-0.59); #Neutrophils 8.5 thou/uL (1.40-6.50); %Basophils 0.4 % (0.0-1.0); %Eosinophils 0.5 % (0.0-10.0); %Lymphocytes 6.9 % (21.0-51.0); %Monocytes 4.2 % (0.0-10.0); Hemoglobin 11.5 g/dL (12.0-16.0); Mean Corpuscular HGB CONC 33.2 g/dL (32.0-36.0); Mean Corpuscular Hemoglobin 32.2 pg (27.0-31.0); Mean Corpuscular Volume 97.2 fL (78.0-98.0); Mean Platelet Volume 9.2 fL (7.4-10.4); Platelet Count 209 thou/uL (130-400); RBC Distribution Width 14.6 % (11.5-14.5); Red Blood Cell (RBC) Count 3.57 mill/uL (4.20-5.40); White Blood Cell (WBC) Count 9.7 thou/uL (4.8-10.8)
[2020-02-07] MEDS: HumaLOG 300 UNITS/3 ML VIAL SC PRN ×2 (03:37→17:00)
[2020-02-07 04:00] LABS: Anion Gap 11 mmol/L (10-20); BUN (Urea Nitrogen) 17 mg/dL (9.8-20.1); Calc. Creatinine Clearance 100 mL/min (70-130); Calcium 8.1 mg/dL (7.8-10.44); Carbon Dioxide 28 mmol/L (23-31); Chloride 103 mmol/L (98-107); Estimated GFR-MDRD Greater than 90; Glucose 206 mg/dL (83-110); Potassium 4.2 mmol/L (3.5-5.1); Sodium 138 mmol/L (136-145)
[2020-02-07] MEDS: Sodium Chloride 0.9% 1,000 ML IV SCH (04:30)
[2020-02-07] MEDS: Famotidine 40 MG/5 ML Oral Suspension PER TUBE SCH ×2 (08:03→20:30)
[2020-02-07] MEDS: Enoxaparin Sodium 40 MG/0.4 ML SYRINGE SC SCH ×2 (08:03→20:31)
[2020-02-07] MEDS: Insulin Glargine 15 UNITS in Pre-Filled Syringe 1 EACH SC SCH ×2 (08:03→20:31)
[2020-02-07] MEDS: methylPREDNISolone Sod Succ 40 MG VIAL IVP SCH ×2 (08:04→20:32)
[2020-02-07 08:10] LABS: Actual Bicarbonate (HCO3a) 29.4 mEq/L (22-28); Base Excess (BEa) 4.9 mEq/L (-2.0 to +3.0); CO2 Tension 43.4 mmHg (35.0-45.0); Calcium, Ionized (arterial) 1.15 mmol/L (1.12-1.30); Carboxyhemoglobin (COHb) 0.2 gm% (0.0-3.0); Hemoglobin (Hb) 11.2 g/dL (12.0-16.0); O2 Tension (PaO2), arterial 86.8 mmHg (> 70.0); Potassium - ABG Lab 3.68 mmol/L (3.70-5.30); pH, Arterial 7.45 (7.35-7.45)
[2020-02-07 08:11] LABS: Puncture Site RR
--- NOTE | 2020-02-07 09:24 | PRG ---
DATE OF SERVICE: 02/07/2020 SUBJECTIVE: This morning, she is back on Diprivan because she is shaking head. OBJECTIVE: VITAL SIGNS: Pulse 87, sats are 98% at 40%, blood pressure 140/60, respirations 18. I's and O's negative. CHEST: Decreased breath sounds. No wheezing. CARDIAC: Normal S1 and S2. No gallops. ABDOMEN: No masses. LABORATORY DATA: PO2 is 86, pCO2 45, pH 7.45, PEEP of 5, at rate of 8, 40%. White count 9000. ASSESSMENT AND PLAN: Respiratory failure, encephalopathy, diabetes, coronavirus, acute respiratory distress syndrome. We tried Precedex today, decreased the rate to 4. We may consider weaning and extubation tomorrow. Day #13 on the vent. Job ID: [id number]
[2020-02-07] MEDS: Bacteriostatic Water 30 ML VIAL FS PRN (20:32)
[2020-02-07] MEDS: hydrALAZINE 20 MG/ML VIAL SLOW IVP PRN (22:23)
[2020-02-08] MEDS: Sodium Chloride 0.9% 1,000 ML IV SCH ×2 (04:22→12:43)
[2020-02-08 05:39] LABS: #Lymphocytes 0.6 thou/uL (1.20-3.40); #Monocytes 0.3 thou/uL (0.11-0.59); #Neutrophils 7.7 thou/uL (1.40-6.50); %Eosinophils 0.2 % (0.0-10.0); %Lymphocytes 6.6 % (21.0-51.0); %Monocytes 3.7 % (0.0-10.0); %Neutrophils 89.6 % (42.0-75.0); Hemoglobin 11.2 g/dL (12.0-16.0); Mean Corpuscular HGB CONC 32.5 g/dL (32.0-36.0); Mean Corpuscular Hemoglobin 31.6 pg (27.0-31.0); Mean Corpuscular Volume 97.1 fL (78.0-98.0); Mean Platelet Volume 9.3 fL (7.4-10.4); Platelet Count 175 thou/uL (130-400); RBC Distribution Width 14.4 % (11.5-14.5); Red Blood Cell (RBC) Count 3.54 mill/uL (4.20-5.40); White Blood Cell (WBC) Count 8.6 thou/uL (4.8-10.8)
[2020-02-08 06:06] LABS: Anion Gap 11 mmol/L (10-20); BUN (Urea Nitrogen) 15 mg/dL (9.8-20.1); Calc. Creatinine Clearance 108 mL/min (70-130); Calcium 8.1 mg/dL (7.8-10.44); Carbon Dioxide 28 mmol/L (23-31); Chloride 103 mmol/L (98-107); Estimated GFR-MDRD Greater than 90; Glucose 215 mg/dL (83-110); Potassium 4.2 mmol/L (3.5-5.1); Sodium 138 mmol/L (136-145)
[2020-02-08 07:48] LABS: Actual Bicarbonate (HCO3a) 29.4 mEq/L (22-28); CO2 Tension 42.9 mmHg (35.0-45.0); Hemoglobin (Hb) 11.8 g/dL (12.0-16.0); pH, Arterial 7.45 (7.35-7.45)
[2020-02-08 07:49] LABS: ALV-art Gradient 146.575 (0-20); Calcium, Ionized (arterial) 1.18 mmol/L (1.12-1.30); Potassium - ABG Lab 3.94 mmol/L (3.70-5.30); Puncture Site LRA
[2020-02-08] MEDS: Insulin Glargine 15 UNITS in Pre-Filled Syringe 1 EACH SC SCH ×2 (09:01→21:04)
[2020-02-08] MEDS: Famotidine 40 MG/5 ML Oral Suspension PER TUBE SCH ×2 (09:01→21:04)
[2020-02-08] MEDS: Enoxaparin Sodium 40 MG/0.4 ML SYRINGE SC SCH ×2 (09:01→21:04)
[2020-02-08] MEDS: methylPREDNISolone Sod Succ 40 MG VIAL IVP SCH ×2 (09:01→21:05)
--- NOTE | 2020-02-08 11:05 | PRG ---
DATE OF SERVICE: 02/08/2020 SUBJECTIVE: This morning, she is still bobbing her head, still encephalopathic. OBJECTIVE: VITAL SIGNS: Her maximum temperature is 98, pulse 80, respiratory rate 18, blood pressure 112/97, saturations 97%. She has a rate of 4, PEEP of 5, and 40%. CHEST: No wheezing. No crackles. CARDIAC: Normal S1 and S2. LABORATORY DATA: Unremarkable. ASSESSMENT: Coronavirus pneumonia, respiratory failure, acute respiratory distress syndrome. PLAN: She is on Demadex and low-dose steroids. She has received plasma, Zithromax, and Remdesivir. We may consider extubation on Tuesday. Otherwise, she is going to require trach and PEG. She is day 14 of the vent. One-half hour of critical care time. Job ID: [id number]
[2020-02-08] MEDS: Lorazepam 2 MG/ML VIAL SLOW IVP PRN (21:38)
[2020-02-08] MEDS: HumaLOG 300 UNITS/3 ML VIAL SC PRN (21:43)
[2020-02-09 04:43] LABS: Hemoglobin 10.2 g/dL (12.0-16.0); Mean Corpuscular Hemoglobin 31.8 pg (27.0-31.0); Mean Corpuscular Volume 96.4 fL (78.0-98.0); Mean Platelet Volume 9.2 fL (7.4-10.4); Platelet Count 163 thou/uL (130-400); RBC Distribution Width 14.6 % (11.5-14.5); White Blood Cell (WBC) Count 10.1 thou/uL (4.8-10.8)
[2020-02-09 04:44] LABS: Band 12 % (5-11); Elliptocytes SLIGHT = 2-5 cells (100X) (0-1/hpf); Lymphocytes 2 % (21-51); MDiff Complete? YES; Metamyelocyte 3 % (0-0); Monocytes 1 % (0-10); Neutrophil 82 % (42-75); Platelet Morphology Comment Appears Adequate
[2020-02-09 04:54] LABS: Anion Gap 9 mmol/L (10-20); BUN (Urea Nitrogen) 19 mg/dL (9.8-20.1); Calc. Creatinine Clearance 106 mL/min (70-130); Calcium 7.8 mg/dL (7.8-10.44); Carbon Dioxide 28 mmol/L (23-31); Chloride 104 mmol/L (98-107); Estimated GFR-MDRD Greater than 90; Glucose 142 mg/dL (83-110); Sodium 137 mmol/L (136-145)
[2020-02-09 05:50] LABS: Actual Bicarbonate (HCO3a) 27.7 mEq/L (22-28); Base Excess (BEa) 4.1 mEq/L (-2.0 to +3.0); CO2 Tension 37.9 mmHg (35.0-45.0); Calcium, Ionized (arterial) 1.14 mmol/L (1.12-1.30); Carboxyhemoglobin (COHb) 0.7 gm% (0.0-3.0); Hemoglobin (Hb) 10.8 g/dL (12.0-16.0); Potassium - ABG Lab 3.73 mmol/L (3.70-5.30); pH, Arterial 7.48 (7.35-7.45)
[2020-02-09 05:54] LABS: O2 Tension (PaO2), arterial 56.7 mmHg (> 70.0)
[2020-02-09 05:55] LABS: ALV-art Gradient 181.125 (0-20); Puncture Site RR
--- NOTE | 2020-02-09 08:31 | RAD ---
PORTABLE CHEST: HISTORY: COVID pneumonia followup. COMPARISON: 02/06/2020. FINDINGS: Diffuse hazy bilateral infiltrates similar to the prior exam, although possibly some improvement in a eration. The ET tube remains in place. IMPRESSION: Diffuse bilateral infiltrates again noted. POS: AGW
[2020-02-09] MEDS: Insulin Glargine 15 UNITS in Pre-Filled Syringe 1 EACH SC SCH ×2 (08:34→20:35)
[2020-02-09] MEDS: Enoxaparin Sodium 40 MG/0.4 ML SYRINGE SC SCH ×2 (08:34→20:34)
[2020-02-09] MEDS: Famotidine 40 MG/5 ML Oral Suspension PER TUBE SCH ×2 (08:35→20:34)
[2020-02-09] MEDS: Bacteriostatic Water 30 ML VIAL FS PRN (08:35)
[2020-02-09] MEDS: methylPREDNISolone Sod Succ 40 MG VIAL IVP SCH ×2 (08:35→20:34)
[2020-02-09] MEDS: HumaLOG 300 UNITS/3 ML VIAL SC PRN (13:18)
[2020-02-09 13:20] LABS: SARS-CoV-2 MS2 Positive; SARS-CoV-2 N Gene Positive; SARS-CoV-2 S Gene Positive; SARS-CoV-2 orf1ab Positive
--- NOTE | 2020-02-09 14:44 | PRG ---
DATE OF SERVICE: 02/09/2020 SUBJECTIVE: She remains ventilated for COVID pneumonia and today is ventilator day #15. Conversations have been held with her family about trach. At one time, they stated they did not wish a trach, but after conversation with others, they feel that they might. Despite this, they state that the patient would not want long-term intermediate placement, and in my mind that is the direction if tracheostomy takes us. From a ventilator standpoint today, she still has quite stiff lungs and no obvious weaning success has been accomplished. OBJECTIVE: VITAL SIGNS: Today include blood pressure 135/68, heart rate is 70, saturation 99%. GENERAL: She is minimally responsive. LUNGS: Show coarse rales. HEART: Regular rate and rhythm with a quiet murmur. ABDOMEN: Soft. There is no organomegaly. She does not have cord. She has 1+ edema. LABORATORY DATA: White count is 10,100, hemoglobin is 10.2, and platelet count 163,000. She does have 12% bands. Blood gas includes pH 7.48, CO2 of 38, pO2 of 56, and bicarbonate of 28. This is obtained with a rate of 4 and 40%. Electrolytes include sodium 137, potassium 4, chloride 104, CO2 is 28, BUN 19, and creatinine 0.5. Chest x-ray shows bilateral hazy opacifications. The endotracheal tube tip appears to be near the aldair and we will withdraw it approximately 1 cm. IMPRESSION: COVID pneumonia, now requiring ventilatory support for 15 days. Family seems to be inconsistent about a tracheostomy and we need further conversation, so that we can make a decision as soon as Tuesday. Other interventions continue. Job ID: [id number]
[2020-02-09] MEDS: Sodium Chloride 0.9% 1,000 ML IV SCH (16:46)
--- NOTE | 2020-02-09 17:43 | PDOC.EVN ---
Event Note - Event Note Event Note: Patient seen from a distance. She remains intubated under supportive care for COVID pneumonia, and respiratory failure. Awaiting family decision regarding possible trach and PEG tube placement.
[2020-02-09] MEDS: Lorazepam 2 MG/ML VIAL SLOW IVP PRN (20:33)
[2020-02-09] MEDS: hydrALAZINE 20 MG/ML VIAL SLOW IVP PRN (20:33)
[2020-02-10] MEDS: Sodium Chloride 0.9% 1,000 ML IV SCH ×2 (01:15→12:32)
[2020-02-10 05:13] LABS: #Lymphocytes 0.5 thou/uL (1.20-3.40); #Monocytes 0.3 thou/uL (0.11-0.59); #Neutrophils 6.8 thou/uL (1.40-6.50); %Basophils 0.4 % (0.0-1.0); %Eosinophils 0.2 % (0.0-10.0); %Lymphocytes 6.4 % (21.0-51.0); %Monocytes 3.3 % (0.0-10.0); %Neutrophils 89.7 % (42.0-75.0); Hemoglobin 10.1 g/dL (12.0-16.0); Mean Corpuscular HGB CONC 33.9 g/dL (32.0-36.0); Mean Corpuscular Hemoglobin 32.9 pg (27.0-31.0); Mean Platelet Volume 9.5 fL (7.4-10.4); Platelet Count 147 thou/uL (130-400); RBC Distribution Width 14.5 % (11.5-14.5); Red Blood Cell (RBC) Count 3.08 mill/uL (4.20-5.40); White Blood Cell (WBC) Count 7.6 thou/uL (4.8-10.8)
[2020-02-10 05:24] LABS: Actual Bicarbonate (HCO3a) 27.5 mEq/L (22-28); Base Excess (BEa) 4.2 mEq/L (-2.0 to +3.0); CO2 Tension 36.7 mmHg (35.0-45.0); Calcium, Ionized (arterial) 1.17 mmol/L (1.12-1.30); Carboxyhemoglobin (COHb) 0.6 gm% (0.0-3.0); O2 Tension (PaO2), arterial 69.1 mmHg (> 70.0); pH, Arterial 7.49 (7.35-7.45)
[2020-02-10 05:29] LABS: ALV-art Gradient 170.225 (0-20); Puncture Site RR
[2020-02-10 05:32] LABS: Anion Gap 9 mmol/L (10-20); BUN (Urea Nitrogen) 14 mg/dL (9.8-20.1); Calc. Creatinine Clearance 106 mL/min (70-130); Calcium 7.8 mg/dL (7.8-10.44); Carbon Dioxide 27 mmol/L (23-31); Chloride 106 mmol/L (98-107); Estimated GFR-MDRD Greater than 90; Glucose 172 mg/dL (83-110); Sodium 138 mmol/L (136-145)
[2020-02-10] MEDS: HumaLOG 300 UNITS/3 ML VIAL SC PRN ×3 (06:35→16:27)
[2020-02-10] MEDS: methylPREDNISolone Sod Succ 40 MG VIAL IVP SCH ×2 (08:59→20:47)
[2020-02-10] MEDS: Enoxaparin Sodium 40 MG/0.4 ML SYRINGE SC SCH ×2 (08:59→20:46)
[2020-02-10] MEDS: Famotidine 40 MG/5 ML Oral Suspension PER TUBE SCH ×2 (08:59→20:47)
[2020-02-10] MEDS: Insulin Glargine 15 UNITS in Pre-Filled Syringe 1 EACH SC SCH ×2 (09:00→20:47)
--- NOTE | 2020-02-10 11:16 | PRG ---
DATE OF SERVICE: 02/10/2020 SUBJECTIVE: Ms. Guerra is essentially unchanged in the past 24 hours. She is still having significant ventilatory demands and is not near approaching point of extubation. Her repeat COVID test is positive despite having now been on the ventilator for 16 days. I have had a talk with the family about trach and percutaneous endoscopic gastrostomy. They state that they "want everything done." PHYSICAL EXAMINATION: VITAL SIGNS: Blood pressure today 116/58, heart rate is 81. She is on 50% oxygen. Saturation is 89-91%. GENERAL: She is intubated, sluggishly responsive. NECK: Shows no adenopathy. LUNGS: Bilateral rales. HEART: Regular rate and rhythm. ABDOMEN: Soft. There is no organomegaly. Bowel sounds are normal. EXTREMITIES: She does not have any edema. LABORATORY DATA: White count 7600, hemoglobin is 10.1 with hematocrit 29.9 and platelet count of 447,000. Chemistry includes sodium 138, potassium 4.0, chloride 106, CO2 is 27, BUN 14, creatinine 0.4. Blood gas includes pH 7.49, CO2 is 37, PO2 69, bicarbonate 27. This is obtained on 40% oxygen, PEEP of 5. IMPRESSION: COVID pneumonia with prolonged ventilatory support. Unfortunately, she is nowhere near the point of extubation. I have talked to her family and they state that they want everything possible done with a goal of ultimate resolution and return home in a normal state. We have talked about tracheostomy and PEG and they wish to proceed in that direction and we will try to get that arranged in the next several days. Otherwise, we continue supportive therapy. PLAN: Continued ventilatory support. I have asked they increase the PEEP slightly in order to give us a little additional margin with the oxygen saturation and goal of keeping FiO2 below 50%. As noted above, family wishes PEG and trach. We will try to get that arranged in the next several days. Job ID: [id number]
--- NOTE | 2020-02-10 17:18 | PDOC.EVN ---
Event Note - Event Note Event Note: Patient followed at a distance. She is admitted with respiratory failure due to COVID pneumonia. She is intubated. Family has decided on trach and PEG.
[2020-02-11 05:07] LABS: #Lymphocytes 0.4 thou/uL (1.20-3.40); #Monocytes 0.2 thou/uL (0.11-0.59); #Neutrophils 3.4 thou/uL (1.40-6.50); %Eosinophils 0.4 % (0.0-10.0); %Monocytes 4.7 % (0.0-10.0); %Neutrophils 84.9 % (42.0-75.0); Hemoglobin 10.4 g/dL (12.0-16.0); Mean Corpuscular HGB CONC 32.5 g/dL (32.0-36.0); Mean Corpuscular Hemoglobin 31.7 pg (27.0-31.0); Mean Corpuscular Volume 97.4 fL (78.0-98.0); Mean Platelet Volume 9.4 fL (7.4-10.4); Platelet Count 156 thou/uL (130-400); RBC Distribution Width 14.8 % (11.5-14.5); Red Blood Cell (RBC) Count 3.28 mill/uL (4.20-5.40)
[2020-02-11 05:25] LABS: Anion Gap 11 mmol/L (10-20); BUN (Urea Nitrogen) 18 mg/dL (9.8-20.1); Carbon Dioxide 24 mmol/L (23-31); Chloride 105 mmol/L (98-107); Potassium 3.8 mmol/L (3.5-5.1); Sodium 136 mmol/L (136-145)
[2020-02-11 05:26] LABS: Calc. Creatinine Clearance 106 mL/min (70-130); Calcium 7.7 mg/dL (7.8-10.44); Estimated GFR-MDRD Greater than 90; Glucose 180 mg/dL (83-110)
[2020-02-11] MEDS: Lorazepam 2 MG/ML VIAL SLOW IVP PRN (05:44)
[2020-02-11] MEDS: HumaLOG 300 UNITS/3 ML VIAL SC PRN ×3 (05:57→16:58)
[2020-02-11 08:02] LABS: Base Excess (BEa) 0.2 mEq/L (-2.0 to +3.0); CO2 Tension 36.2 mmHg (35.0-45.0); Calcium, Ionized (arterial) 1.16 mmol/L (1.12-1.30); Carboxyhemoglobin (COHb) 0.4 gm% (0.0-3.0); Hemoglobin (Hb) 12.7 g/dL (12.0-16.0); Potassium - ABG Lab 3.86 mmol/L (3.70-5.30); pH, Arterial 7.44 (7.35-7.45)
[2020-02-11 08:03] LABS: O2 Tension (PaO2), arterial 48.4 mmHg (> 70.0); Peep/CPAP 7.5 cmH2O; Puncture Site LRA
[2020-02-11] MEDS: Acetaminophen 325 MG TAB PO PRN ×2 (08:27→16:59)
[2020-02-11] MEDS: Enoxaparin Sodium 40 MG/0.4 ML SYRINGE SC SCH ×2 (08:41→20:57)
[2020-02-11] MEDS: Famotidine 40 MG/5 ML Oral Suspension PER TUBE SCH ×2 (08:41→20:56)
[2020-02-11] MEDS: Insulin Glargine 15 UNITS in Pre-Filled Syringe 1 EACH SC SCH ×2 (08:42→20:56)
[2020-02-11] MEDS: methylPREDNISolone Sod Succ 40 MG VIAL IVP SCH ×2 (08:43→20:56)
[2020-02-11] MEDS ORDERED: Fentanyl 100 MCG/2 ML VIAL FS PRN (12:21)
[2020-02-11] MEDS ORDERED: Lidocaine 1% w/Epinephrine 1:100K 20 ML VIAL FS PRN (12:21)
[2020-02-11] MEDS ORDERED: Vecuronium 10 MG VIAL FS PRN (12:23)
[2020-02-11] MEDS ORDERED: Midazolam HCl 5 mg/5 ml Vial SLOW IVP PRN (12:23)
--- NOTE | 2020-02-11 14:01 | PRG ---
DATE OF SERVICE: 02/11/2020 SUBJECTIVE: Her condition got worse over the last 48 hours, worsening hypoxemia. OBJECTIVE: VITAL SIGNS: Temperature 103.5, pulse 108, blood pressure , respirations 40, sats 97% on a PEEP of 8 and 70%. CHEST: With rhonchi, crackles. CARDIAC: Normal S1 and S2. No gallops. ABDOMEN: No masses. LABORATORY DATA: White count 4000, hemoglobin and hematocrit 10 and 31, platelet count 156. PO2 is 48, pCO2 35. Electrolytes are normal. Glucose 167. Repeat coronavirus test was positive. IMAGING STUDIES: X-ray, worsening diffuse infiltrates. ASSESSMENT AND PLAN: Acute respiratory distress syndrome, positive coronavirus. Increase PEEP to 10. Continue sats of 99 to 100%, day #18 on the vent. Consult Surgery for trach and PEG. She is clearly not weanable at this stage. Prognosis is guarded. I spoke to her daughter, granddaughter, they want everything to be done at this stage including trach, PEG, etc. CRITICAL CARE TIME: One-half hour of critical care time. Job ID: [id number]
--- NOTE | 2020-02-11 15:54 | PDOC.HOSPP ---
- Subjective Encounter Date: 02/11/20 Encounter Time: 14:00 Subjective: is on vent, not awake - Objective Vital Signs & Weight: Vital Signs (12 hours) Temp Pulse Resp BP Pulse Ox 02/11/20 14:00 44 H 02/11/20 13:35 90 42 H 99 02/11/20 12:00 100.3 F H 43 H 02/11/20 10:16 92 119/53 L 02/11/20 10:00 100.7 F H 44 H 02/11/20 08:00 103.0 F H 43 H 98 02/11/20 07:34 108 H 02/11/20 07:07 89 32 H 91 L 02/11/20 06:00 36 H 02/11/20 04:00 33 H Weight Admit Weight 154 lb Weight 165 lb 5.547 oz Most Recent Monitor Data Heart Rate from ECG 96 NIBP 105/55 NIBP BP-Mean 71 Respiration from ECG 42 SpO2 98 I&O: 02/10/20 02/11/20 02/12/20 06:59 06:59 06:59 Intake Total 2202 2429 200 Output Total 2305 1375 260 Balance -103 1054 -60 Result Diagrams: 02/11/20 04:30 02/11/20 04:30 Additional Labs: Accuchecks 02/11/20 02/11/20 02/11/20 12:33 07:56 00:18 POC Glucose 137 H 164 H 144 H 02/10/20 02/10/20 02/10/20 19:46 16:14 12:40 POC Glucose 138 H 161 H 177 H 02/10/20 09:10 POC Glucose 119 H Hospitalist ROS - Medication Medications: Active Medications Generic Name Dose Route Start Last Admin Trade Name Freq PRN Reason Stop Dose Admin Acetaminophen 650 mg 01/24/20 04:04 02/11/20 08:27 Tylenol PO 650 mg Q4H PRN Administration Headache/Fever/Mild Pain (1-3) Albuterol/Ipratropium 3 ml 01/27/20 19:00 02/11/20 13:35 Duoneb IPPB 3 ml [id number] GARY Administration Dextrose/Water 25 gm 01/24/20 04:04 02/05/20 07:51 Dextrose 50% SLOW IVP 25 gm PRN PRN Administration Hypoglycemia Famotidine 20 mg 01/25/20 21:00 02/11/20 08:41 Pepcid PER TUBE 20 mg Q12HR GARY Administration Hydralazine HCl 10 mg 02/06/20 12:37 02/09/20 20:33 Apresoline SLOW IVP 10 mg Q4H PRN Administration SBP > 180 and HR < 70 Sodium Chloride 1,000 mls @ 50 mls/hr 02/01/20 08:30 02/10/20 12:32 Normal Saline 0.9% IV 1,000 mls .Q20H GARY Administration Insulin Glargine 15 units/ 0.15 mls @ 0 mls/hr 02/05/20 21:00 02/10/20 20:47 Miscellaneous Medication SC 0.15 mls HS GARY Administration Insulin Glargine 15 units/ 0.15 mls @ 0 mls/hr 02/06/20 09:00 02/11/20 08:42 Miscellaneous Medication SC 0.15 mls QAM GARY Administration Dexmedetomidine HCl 400 mcg/ 100 mls @ 0 mls/hr 02/07/20 21:30 02/11/20 07:47 Sodium Chloride IVPB 100 mls INF GARY Administration Protocol Per Protocol Insulin Human Lispro 0 units 01/27/20 11:43 02/11/20 08:10 Humalog SC 3 unit .AGGRESSIVE SLIDING PRN Administration AGGRESSIVE SLIDING SCALE Protocol Lorazepam 2 mg 02/05/20 09:45 02/11/20 05:44 Ativan SLOW IVP 2 mg Q1H PRN Administration Breakthrough agitation Methylprednisolone Sodium Succinate 20 mg 01/30/20 09:00 02/11/20 08:43 Solu-Medrol IVP 20 mg BID GARY Administration Morphine Sulfate 2 mg 02/05/20 09:45 02/06/20 20:18 Morphine SLOW IVP 2 mg Q1H PRN Administration BREAKTHROUGH PAIN/Agitation Propofol 1,000 mg 01/25/20 04:15 02/05/20 19:39 Diprivan IV 02/24/20 04:15 1,000 mg INF PRN Administration TO ACHIEVE GOAL RASS Protocol Sodium Chloride 10 ml 01/27/20 09:00 02/11/20 08:43 Flush - Normal Saline IVF 10 ml Q12HR GARY Administration Sterile Water 1 ml 01/24/20 11:25 02/09/20 08:35 Bacteriostatic Water FS 1 ml PRN PRN Administration RECONSTITUTION - Exam General Appearance: ill appearing Eye: anicteric sclera ENT: normocephalic atraumatic, dry oral mucosa Neck: supple, no JVD Heart: RRR Respiratory: normal chest expansion Gastrointestinal: soft, normal bowel sounds Extremities: no cyanosis, no edema Neurological: cranial nerve grossly intact, no focal deficits Hosp A/P (1) Pneumonia due to COVID-19 virus Code(s): U07.1 - COVID-19; J12.89 - OTHER VIRAL PNEUMONIA Status: Acute (2) Acute respiratory failure with hypoxia Code(s): J96.01 - ACUTE RESPIRATORY FAILURE WITH HYPOXIA Status: Acute (3) DM type 2 (diabetes mellitus, type 2) Status: Chronic Qualifiers: Diabetes mellitus fci insulin use: with long term care phlebotomist use (4) Obesity (BMI 30.0-34.9) Code(s): E66.9 - OBESITY, UNSPECIFIED Status: Chronic (5) Acute metabolic encephalopathy Code(s): G93.41 - METABOLIC ENCEPHALOPATHY Status: Acute (6) CAD (coronary artery disease) Code(s): I25.10 - ATHSCL HEART DISEASE OF [place] CORONARY ARTERY W/O ANG PCTRS Status: Chronic Qualifiers: Coronary Disease-Associated Artery/Lesion type: bypass graft [place] vs. transplanted heart: [place] heart Associated angina: without angina Qualified Code(s): I25.810 - Atherosclerosis of coronary artery bypass graft(s) without angina pectoris - Plan has severe pulm involvement with ARDS features prolonged hospitalization has finished full course of drugs for covid 19 virus on steroids, nebs, lovenox 40mg bid, lantus and iv fluids for trach and peg per family wishes to pursue active care poor prognosis
[2020-02-11] MEDS: Sodium Chloride 0.9% 1,000 ML IV SCH (18:29)
[2020-02-11] MEDS: Cefepime 2 GM in Sodium Chloride 0.9% 100 ML IVPB SCH (20:55)
[2020-02-11] MEDS: Morphine 2 MG/ML VIAL SLOW IVP PRN (22:40)
[2020-02-12] MEDS: Morphine 2 MG/ML SYRINGE SLOW IVP PRN (03:00)
[2020-02-12 05:56] LABS: Anion Gap 11 mmol/L (10-20); BUN (Urea Nitrogen) 21 mg/dL (9.8-20.1); Calc. Creatinine Clearance 107 mL/min (70-130); Calcium 7.7 mg/dL (7.8-10.44); Carbon Dioxide 24 mmol/L (23-31); Chloride 106 mmol/L (98-107); Estimated GFR-MDRD Greater than 90; Glucose 174 mg/dL (83-110); Potassium 3.9 mmol/L (3.5-5.1); Sodium 137 mmol/L (136-145)
[2020-02-12 06:08] LABS: Band 25 % (5-11); Hemoglobin 9.6 g/dL (12.0-16.0); Lymphocytes 11 % (21-51); MDiff Complete? YES; Mean Corpuscular HGB CONC 32.3 g/dL (32.0-36.0); Mean Corpuscular Hemoglobin 31.8 pg (27.0-31.0); Mean Corpuscular Volume 98.4 fL (78.0-98.0); Mean Platelet Volume 9.5 fL (7.4-10.4); Monocytes 7 % (0-10); Neutrophil 57 % (42-75); Platelet Count 140 thou/uL (130-400); Platelet Morphology Comment Appears Adequate; RBC Distribution Width 14.9 % (11.5-14.5); Red Blood Cell (RBC) Count 3.03 mill/uL (4.20-5.40); White Blood Cell (WBC) Count 3.2 thou/uL (4.8-10.8)
[2020-02-12] MEDS: Sodium Chloride 0.9% 1,000 ML IV SCH ×2 (06:19→20:13)
[2020-02-12 07:26] LABS: Actual Bicarbonate (HCO3a) 22.3 mEq/L (22-28); Base Excess (BEa) -2.4 mEq/L (-2.0 to +3.0); CO2 Tension 38.2 mmHg (35.0-45.0); Calcium, Ionized (arterial) 1.14 mmol/L (1.12-1.30); Carboxyhemoglobin (COHb) 0.3 gm% (0.0-3.0); Hemoglobin (Hb) 10.5 g/dL (12.0-16.0); Potassium - ABG Lab 4.06 mmol/L (3.70-5.30); pH, Arterial 7.39 (7.35-7.45)
[2020-02-12 07:30] LABS: Puncture Site RRA
[2020-02-12] MEDS: Cefepime 2 GM in Sodium Chloride 0.9% 100 ML IVPB SCH ×2 (08:11→20:16)
[2020-02-12] MEDS: Enoxaparin Sodium 40 MG/0.4 ML SYRINGE SC SCH ×2 (08:12→20:17)
[2020-02-12] MEDS: Morphine 2 MG/ML VIAL SLOW IVP PRN ×2 (08:12→12:18)
[2020-02-12] MEDS: methylPREDNISolone Sod Succ 40 MG VIAL IVP SCH ×2 (08:12→20:17)
[2020-02-12] MEDS: Insulin Glargine 15 UNITS in Pre-Filled Syringe 1 EACH SC SCH ×2 (08:13→20:17)
[2020-02-12] MEDS: Famotidine 40 MG/5 ML Oral Suspension PER TUBE SCH ×2 (08:13→20:17)
[2020-02-12] MEDS: HumaLOG 300 UNITS/3 ML VIAL SC PRN ×3 (08:44→16:35)
[2020-02-12] MEDS ORDERED: Linezolid 600 MG in Premix Bag 1 BAG IVPB SCH (10:00)
--- NOTE | 2020-02-12 10:01 | PRG ---
DATE OF SERVICE: 02/12/2020 SUBJECTIVE: A 74-year-old female, remains hypoxic on 70% and a PEEP of 9sputum culture may grow Staph. OBJECTIVE: VITAL SIGNS: Saturations are barely 90%, blood pressure 90/51, respirations 20, temperature is 99. CHEST: Rhonchi, crackles. CARDIAC: Normal S1, S2. ABDOMEN: Soft. GENERAL: She is sedated, day #18 on the vent. LABORATORY DATA: White count 3000, H and H 9 and 29, platelet count 140. PO2 52, pCO2 of . Lytes are normal. Glucose 198. ASSESSMENT: 1. Respiratory failure, acute respiratory distress syndrome, coronavirus positive pneumonia. 2. Possibly superimposed hospital-acquired pneumonia. Awaiting cultures. I may decide on some Zyvox tomorrow. She is clearly not weanable. Surgery was concerned about the high PEEP to do a bedside trach. Hopefully, we can decrease the PEEP and consider traching her in the next several days. She is already #18 on the vent. One-half hour of critical time. Job ID: [id number]
[2020-02-12] MEDS: Lorazepam 2 MG/ML VIAL SLOW IVP PRN ×2 (12:18→14:27)
[2020-02-12 13:06] VITALS: BMI 31.2
[2020-02-12] MEDS: Propofol 1,000 MG/100 ML VIAL IV PRN (14:27)
[2020-02-12] MEDS: Acetaminophen 325 MG TAB PO PRN (14:27)
--- NOTE | 2020-02-12 15:30 | PDOC.HOSPP ---
- Subjective Encounter Date: 02/12/20 Encounter Time: 14:00 Subjective: is on vent, not awake - Objective Vital Signs & Weight: Vital Signs (12 hours) Temp Pulse Resp BP Pulse Ox 02/12/20 15:00 99.3 F 02/12/20 14:56 85 121/62 02/12/20 14:00 33 H 02/12/20 12:00 100.4 F H 32 H 02/12/20 11:59 99 02/12/20 10:24 95 02/12/20 10:00 33 H 02/12/20 08:00 99.4 F 30 H 02/12/20 07:46 90 L 02/12/20 06:54 79 02/12/20 06:00 30 H 02/12/20 04:00 99.8 F H 40 H Weight Admit Weight 154 lb Weight 165 lb 5.547 oz Most Recent Monitor Data Heart Rate from ECG 85 NIBP 101/57 NIBP BP-Mean 71 Respiration from ECG 35 SpO2 84 I&O: 02/11/20 02/12/20 02/13/20 06:59 06:59 06:59 Intake Total 2429 2507 430 Output Total 1375 780 405 Balance 1054 1727 25 Result Diagrams: 02/12/20 04:15 02/12/20 04:15 Additional Labs: Accuchecks 02/12/20 02/12/20 02/12/20 08:25 04:25 00:30 POC Glucose 198 H 177 H 134 H 02/11/20 02/11/20 21:05 16:36 POC Glucose 90 151 H Hospitalist ROS - Medication Medications: Active Medications Generic Name Dose Route Start Last Admin Trade Name Freq PRN Reason Stop Dose Admin Acetaminophen 650 mg 01/24/20 04:04 02/12/20 14:27 Tylenol PO 650 mg Q4H PRN Administration Headache/Fever/Mild Pain (1-3) Albuterol/Ipratropium 3 ml 01/27/20 19:00 02/12/20 12:32 Duoneb IPPB 3 ml Q9NT-CD GARY Administration Dextrose/Water 25 gm 01/24/20 04:04 02/05/20 07:51 Dextrose 50% SLOW IVP 25 gm PRN PRN Administration Hypoglycemia Enoxaparin Sodium 40 mg 02/11/20 21:00 02/12/20 08:12 Lovenox SC 40 mg BID GARY Administration Famotidine 20 mg 01/25/20 21:00 02/12/20 08:13 Pepcid PER TUBE 20 mg Q12HR GARY Administration Hydralazine HCl 10 mg 02/06/20 12:37 02/09/20 20:33 Apresoline SLOW IVP 10 mg Q4H PRN Administration SBP > 180 and HR < 70 Sodium Chloride 1,000 mls @ 50 mls/hr 02/01/20 08:30 02/12/20 06:19 Normal Saline 0.9% IV Not Given .Q20H GARY Insulin Glargine 15 units/ 0.15 mls @ 0 mls/hr 02/05/20 21:00 02/11/20 20:56 Miscellaneous Medication SC Not Given HS GARY Insulin Glargine 15 units/ 0.15 mls @ 0 mls/hr 02/06/20 09:00 02/12/20 08:13 Miscellaneous Medication SC 0.15 mls QAM GARY Administration Dexmedetomidine HCl 400 mcg/ 100 mls @ 0 mls/hr 02/07/20 21:30 02/12/20 11:50 Sodium Chloride IVPB 100 mls INF GARY Administration Protocol Per Protocol Cefepime HCl 2 gm/ Sodium 100 mls @ 200 mls/hr 02/11/20 21:00 02/12/20 08:11 Chloride IVPB 100 mls 0900,2100 GARY Administration Linezolid 600 mg/ Device 300 mls @ 150 mls/hr 02/12/20 10:00 02/12/20 11:51 IVPB 300 mls 1000,2200 GARY Administration Insulin Human Lispro 0 units 01/27/20 11:43 02/12/20 12:44 Humalog SC 6 unit .AGGRESSIVE SLIDING PRN Administration AGGRESSIVE SLIDING SCALE Protocol Lorazepam 2 mg 02/05/20 09:45 02/12/20 14:27 Ativan SLOW IVP 2 mg Q1H PRN Administration Breakthrough agitation Methylprednisolone Sodium Succinate 20 mg 01/30/20 09:00 02/12/20 08:12 Solu-Medrol IVP 20 mg BID GARY Administration Morphine Sulfate 2 mg 02/11/20 22:45 02/12/20 12:18 Morphine Sulfate SLOW IVP 2 mg Q1H PRN Administration BREAKTHROUGH PAIN/Agitation Propofol 1,000 mg 01/25/20 04:15 02/12/20 14:27 Diprivan IV 02/24/20 04:15 1,000 mg INF PRN Administration TO ACHIEVE GOAL RASS Protocol Sodium Chloride 10 ml 01/27/20 09:00 02/12/20 08:13 Flush - Normal Saline IVF 10 ml Q12HR GARY Administration Sterile Water 1 ml 01/24/20 11:25 02/09/20 08:35 Bacteriostatic Water FS 1 ml PRN PRN Administration RECONSTITUTION - Exam General Appearance: ill appearing Eye: anicteric sclera ENT: normocephalic atraumatic, dry oral mucosa Neck: supple, no JVD Heart: RRR Respiratory: normal chest expansion, tachypneic Gastrointestinal: non-distended Extremities: no cyanosis, no edema Hosp A/P (1) Pneumonia due to COVID-19 virus Code(s): U07.1 - COVID-19; J12.89 - OTHER VIRAL PNEUMONIA Status: Acute (2) Acute respiratory failure with hypoxia Code(s): J96.01 - ACUTE RESPIRATORY FAILURE WITH HYPOXIA Status: Acute (3) DM type 2 (diabetes mellitus, type 2) Status: Chronic Qualifiers: Diabetes mellitus intermission coordinator insulin use: with intermission coordinator use (4) Obesity (BMI 30.0-34.9) Code(s): E66.9 - OBESITY, UNSPECIFIED Status: Chronic (5) Acute metabolic encephalopathy Code(s): G93.41 - METABOLIC ENCEPHALOPATHY Status: Acute (6) CAD (coronary artery disease) Code(s): I25.10 - ATHSCL HEART DISEASE OF [place] CORONARY ARTERY W/O ANG PCTRS Status: Chronic Qualifiers: Coronary Disease-Associated Artery/Lesion type: bypass graft [place] vs. transplanted heart: [place] heart Associated angina: without angina Qualified Code(s): I25.810 - Atherosclerosis of coronary artery bypass graft(s) without angina pectoris - Plan has severe pulm involvement with ARDS features prolonged hospitalization has finished full course of drugs for covid 19 virus on steroids, nebs, lovenox 40mg bid, lantus and iv fluids for trach and peg per family wishes to pursue active care, held up due to high peep for now. poor prognosis
--- NOTE | 2020-02-12 16:16 | CON ---
DATE OF CONSULTATION: 02/11/2020 REQUESTING PHYSICIAN: Aj Herrera MD HISTORY OF PRESENT ILLNESS: This is a 74-year-old woman, admitted on 01/24/2020 with acute hypoxemic respiratory failure, hypertension, and metabolic encephalopathy. The patient had tested positive for COVID-19. She has been on mechanical ventilator support now for almost 2 weeks. She has failed attempt at the ventilator wean. I was asked to evaluate the patient for percutaneous tracheostomy tube and percutaneous endoscopic gastrostomy tube placement. At the time of my evaluation, the patient is sedated on mechanical ventilator support. She is on a PEEP of 9, FiO2 of 75%, achieving O2 saturation of 93%. PAST MEDICAL HISTORY: Pertinent for: 1. Coronary artery disease. 2. Type 2 diabetes mellitus. PAST SURGICAL HISTORY: Pertinent for coronary artery bypass graft. FAMILY HISTORY: Noncontributory for this patient's age. ALLERGIES: THE PATIENT HAS NO KNOWN DRUG ALLERGIES. IMPRESSION: 1. Acute hypoxemic respiratory failure secondary to COVID-19. 2. It appears as if the patient is actually worse as she is requiring increasing PEEP over the last 48 hours. RECOMMENDATIONS: We will continue current medical management and defer operative interventions to a later date when the patient is more hemodynamically stable. It is my opinion that any attempt to perform a tracheostomy at this time when the patient is requiring a higher PEEP will lead to loss of functional residual capacity, which may actually exacerbate the respiratory failure and make postprocedure ventilator support more tedious. Once the patient recovers from the ongoing respiratory failure, requiring PEEP less than 8 with stable oxygenation, we will reconsider the percutaneous tracheostomy tube at that time followed by percutaneous endoscopic gastrostomy tube placement. I have discussed the above with Dr. Herrera who agrees. Thank you again, Dr. Herrera, for allowing me the opportunity to participate in the care of this patient. Job ID: [id number]
[2020-02-12] MEDS: Linezolid 600 MG TAB PO SCH (20:17)
[2020-02-13] MEDS: HumaLOG 300 UNITS/3 ML VIAL SC PRN ×5 (00:20→21:09)
[2020-02-13] MEDS: Propofol 1,000 MG/100 ML VIAL IV PRN ×2 (02:26→11:05)
[2020-02-13 04:52] LABS: Anion Gap 8 mmol/L (10-20); BUN (Urea Nitrogen) 23 mg/dL (9.8-20.1); Calc. Creatinine Clearance 99 mL/min (70-130); Calcium 7.8 mg/dL (7.8-10.44); Carbon Dioxide 25 mmol/L (23-31); Chloride 106 mmol/L (98-107); Estimated GFR-MDRD Greater than 90; Glucose 217 mg/dL (83-110); Potassium 4.2 mmol/L (3.5-5.1); Sodium 135 mmol/L (136-145)
[2020-02-13 05:12] LABS: Band 49 % (5-11); Hemoglobin 9.2 g/dL (12.0-16.0); Hypochromia SLIGHT = 6-15 cells (100X) (0-5/hpf); Lymphocytes 4 % (21-51); MDiff Complete? YES; Mean Corpuscular HGB CONC 32.1 g/dL (32.0-36.0); Mean Corpuscular Hemoglobin 32.1 pg (27.0-31.0); Mean Corpuscular Volume 99.8 fL (78.0-98.0); Monocytes 3 % (0-10); Neutrophil 44 % (42-75); Platelet Count 132 thou/uL (130-400); Platelet Morphology Comment Appears Adequate; RBC Distribution Width 14.6 % (11.5-14.5); Red Blood Cell (RBC) Count 2.87 mill/uL (4.20-5.40); White Blood Cell (WBC) Count 5.7 thou/uL (4.8-10.8)
[2020-02-13 07:11] LABS: Actual Bicarbonate (HCO3a) 24.7 mEq/L (22-28); Base Excess (BEa) -4.2 mEq/L (-2.0 to +3.0); Calcium, Ionized (arterial) 1.26 mmol/L (1.12-1.30); Carboxyhemoglobin (COHb) 0.2 gm% (0.0-3.0); Hemoglobin (Hb) 19.8 g/dL (12.0-16.0); Potassium - ABG Lab 3.99 mmol/L (3.70-5.30)
[2020-02-13 07:12] LABS: pH, Arterial 7.24 (7.35-7.45)
[2020-02-13 07:13] LABS: Puncture Site LRA
--- NOTE | 2020-02-13 08:06 | RAD ---
Chest one view HISTORY: Dyspnea. Intubated. Follow-up. COMPARISON: 02/09/2020. FINDINGS: Cardiac silhouette remains predominantly secured by dense widespread airspace opacification that has progressed slightly since the prior study. Pulmonary vasculature is likely engorged. Mediastinum is midline. Lines and tubes appear unchanged in position. No evidence of pneumothorax. IMPRESSION : Radiographic worsening of widespread airspace disease.
[2020-02-13] MEDS: Enoxaparin Sodium 40 MG/0.4 ML SYRINGE SC SCH ×2 (08:39→20:30)
[2020-02-13] MEDS: Cefepime 2 GM in Sodium Chloride 0.9% 100 ML IVPB SCH ×2 (08:39→20:30)
[2020-02-13] MEDS: methylPREDNISolone Sod Succ 40 MG VIAL IVP SCH ×2 (08:39→20:31)
[2020-02-13] MEDS: Linezolid 600 MG TAB PO SCH ×2 (08:40→20:31)
[2020-02-13] MEDS: Famotidine 40 MG/5 ML Oral Suspension PER TUBE SCH ×2 (08:41→20:31)
[2020-02-13] MEDS: Insulin Glargine 15 UNITS in Pre-Filled Syringe 1 EACH SC SCH ×2 (08:41→20:31)
--- NOTE | 2020-02-13 14:37 | PDOC.HOSPP ---
- Subjective Encounter Date: 02/13/20 Encounter Time: 13:00 Subjective: on vent, not awake or oriented - Objective Vital Signs & Weight: Vital Signs (12 hours) Temp Pulse Resp BP Pulse Ox 02/13/20 14:00 33 H 02/13/20 12:51 108 H 02/13/20 12:00 33 H 02/13/20 11:19 98 136/61 02/13/20 11:00 99.4 F 02/13/20 10:00 35 H 02/13/20 08:00 37 H 90 L 02/13/20 07:04 133 H 155/71 H 02/13/20 07:00 99.3 F 02/13/20 06:00 37 H 02/13/20 04:00 32 H 02/13/20 03:11 106 H 140/64 Weight Admit Weight 154 lb Weight 171 lb 8.314 oz Most Recent Monitor Data Heart Rate from ECG 98 NIBP 126/55 NIBP BP-Mean 78 Respiration from ECG 37 SpO2 95 I&O: 02/12/20 02/13/20 02/14/20 06:59 06:59 06:59 Intake Total 2507 2375.1 Output Total 780 1070 300 Balance 1727 1305.1 -300 Result Diagrams: 02/13/20 04:25 02/13/20 04:25 Additional Labs: Accuchecks 02/13/20 02/13/20 02/13/20 08:55 04:30 00:10 POC Glucose 174 H 216 H 174 H 02/12/20 02/12/20 02/12/20 20:27 16:17 12:28 POC Glucose 127 H 201 H 204 H Hospitalist ROS - Medication Medications: Active Medications Generic Name Dose Route Start Last Admin Trade Name Freq PRN Reason Stop Dose Admin Acetaminophen 650 mg 01/24/20 04:04 02/12/20 14:27 Tylenol PO 650 mg Q4H PRN Administration Headache/Fever/Mild Pain (1-3) Albuterol/Ipratropium 3 ml 01/27/20 19:00 02/13/20 12:51 Duoneb IPPB 3 ml [id number] GARY Administration Dextrose/Water 25 gm 01/24/20 04:04 02/05/20 07:51 Dextrose 50% SLOW IVP 25 gm PRN PRN Administration Hypoglycemia Enoxaparin Sodium 40 mg 06/29/20 21:00 02/13/20 08:39 Lovenox SC 40 mg BID GARY Administration Famotidine 20 mg 01/25/20 21:00 02/13/20 08:41 Pepcid PER TUBE 20 mg Q12HR GARY Administration Hydralazine HCl 10 mg 02/06/20 12:37 02/09/20 20:33 Apresoline SLOW IVP 10 mg Q4H PRN Administration SBP > 180 and HR < 70 Sodium Chloride 1,000 mls @ 50 mls/hr 02/01/20 08:30 02/12/20 20:13 Normal Saline 0.9% IV 1,000 mls .Q20H GARY Administration Insulin Glargine 15 units/ 0.15 mls @ 0 mls/hr 02/05/20 21:00 02/12/20 20:17 Miscellaneous Medication SC 0.15 mls HS GARY Administration Insulin Glargine 15 units/ 0.15 mls @ 0 mls/hr 02/06/20 09:00 02/13/20 08:41 Miscellaneous Medication SC 0.15 mls QAM GARY Administration Dexmedetomidine HCl 400 mcg/ 100 mls @ 0 mls/hr 02/07/20 21:30 02/13/20 11:06 Sodium Chloride IVPB 100 mls INF GARY Administration Protocol Per Protocol Cefepime HCl 2 gm/ Sodium 100 mls @ 200 mls/hr 02/11/20 21:00 02/13/20 08:39 Chloride IVPB 100 mls 0900,2100 GARY Administration Insulin Human Lispro 0 units 01/27/20 11:43 02/13/20 08:44 Humalog SC 3 unit .AGGRESSIVE SLIDING PRN Administration AGGRESSIVE SLIDING SCALE Protocol Linezolid 600 mg 02/12/20 21:00 02/13/20 08:40 Zyvox PO 600 mg Q12HR GARY Administration Lorazepam 2 mg 02/05/20 09:45 02/12/20 14:27 Ativan SLOW IVP 2 mg Q1H PRN Administration Breakthrough agitation Methylprednisolone Sodium Succinate 20 mg 01/30/20 09:00 02/13/20 08:39 Solu-Medrol IVP 20 mg BID GARY Administration Morphine Sulfate 2 mg 02/11/20 22:45 02/12/20 12:18 Morphine Sulfate SLOW IVP 2 mg Q1H PRN Administration BREAKTHROUGH PAIN/Agitation Propofol 1,000 mg 01/25/20 04:15 02/13/20 11:05 Diprivan IV 02/24/20 04:15 1,000 mg INF PRN Administration TO ACHIEVE GOAL RASS Protocol Sodium Chloride 10 ml 01/27/20 09:00 02/13/20 08:39 Flush - Normal Saline IVF 10 ml Q12HR GARY Administration Sterile Water 1 ml 01/24/20 11:25 02/09/20 08:35 Bacteriostatic Water FS 1 ml PRN PRN Administration RECONSTITUTION - Exam General Appearance: ill appearing Eye: PERRL, anicteric sclera ENT: no oropharyngeal lesions, dry oral mucosa Neck: supple, no JVD Heart: RRR, no murmur Respiratory: tachypneic Gastrointestinal: non-distended Extremities: no cyanosis, no edema Neurological: cranial nerve grossly intact, no focal deficits Hosp A/P (1) Pneumonia due to COVID-19 virus Code(s): U07.1 - COVID-19; J12.89 - OTHER VIRAL PNEUMONIA Status: Acute (2) Acute respiratory failure with hypoxia Code(s): J96.01 - ACUTE RESPIRATORY FAILURE WITH HYPOXIA Status: Acute (3) DM type 2 (diabetes mellitus, type 2) Status: Chronic Qualifiers: 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 transplanted heart: [place] heart Associated angina: without angina Qualified Code(s): I25.810 - Atherosclerosis of coronary artery bypass graft(s) without angina pectoris - Plan has severe pulm involvement with ARDS features prolonged hospitalization has finished full course of drugs for covid 19 virus on steroids, nebs, lovenox 40mg bid, lantus and iv fluids for trach and peg per family wishes to pursue active care, held up due to high peep (increased to 13 now) for now. poor prognosis d/w family over phone along with palliative and spiritual care services. They want to be full code for orthodox purposes, family is aware that she may not survive this hospitalization
--- NOTE | 2020-02-13 18:03 | PRG ---
DATE OF SERVICE: 02/13/2020 SUBJECTIVE: Mick Guerra remains intubated , sedated. PO2 is only 52, pCO2 is 59, pH is 7.24, rate of 10, PEEP of 13, 100% FiO2 apparently. OBJECTIVE: VITAL SIGNS: Pulse 133, blood pressure 157/71. CHEST: Revealed decreased breath sounds. Crackles, rhonchi. CARDIAC: Normal S1, S2. No gallops. ABDOMEN: No masses. LABORATORY DATA: White count 5000, H and H 9 and 28. . IMPRESSION: Staph aureus secondary to tracheobronchial infection, prolonged intubation, acute respiratory distress syndrome, coronavirus positive pneumonia. PLAN: Because of her high PEEP, she was not trached; hopefully, we will be able to decrease the PEEP. We may consider trach in the near future. Prognosis grave. Multiple discussions with the family, they want full CPR. We will comply. Prognosis poor. TIME SPENT: One-half hour of critical care time. Job ID: [id number]
[2020-02-14] MEDS: Sodium Chloride 0.9% 1,000 ML IV SCH (02:30)
[2020-02-14 04:48] LABS: Anion Gap 10 mmol/L (10-20); BUN (Urea Nitrogen) 18 mg/dL (9.8-20.1); Calc. Creatinine Clearance 109 mL/min (70-130); Calcium 8.1 mg/dL (7.8-10.44); Carbon Dioxide 27 mmol/L (23-31); Chloride 106 mmol/L (98-107); Estimated GFR-MDRD Greater than 90; Glucose 222 mg/dL (83-110); Potassium 4.2 mmol/L (3.5-5.1); Sodium 139 mmol/L (136-145)
[2020-02-14 05:15] LABS: Band 37 % (5-11); Eosinophils 1 % (0-10); Hemoglobin 9.4 g/dL (12.0-16.0); MDiff Complete? YES; Mean Corpuscular Hemoglobin 31.9 pg (27.0-31.0); Mean Corpuscular Volume 99.7 fL (78.0-98.0); Mean Platelet Volume 8.9 fL (7.4-10.4); Monocytes 2 % (0-10); Neutrophil 59 % (42-75); Platelet Count 155 thou/uL (130-400); Platelet Morphology Comment Appears Adequate; RBC Distribution Width 14.7 % (11.5-14.5); Red Blood Cell (RBC) Count 2.94 mill/uL (4.20-5.40); White Blood Cell (WBC) Count 11.7 thou/uL (4.8-10.8)
[2020-02-14] MEDS: HumaLOG 300 UNITS/3 ML VIAL SC PRN (06:35)
[2020-02-14 06:44] VITALS: TEMP 99.7
--- NOTE | 2020-02-14 07:45 | RAD ---
Chest one view HISTORY: Dyspnea. Intubated. Follow-up. COMPARISON: 02/13/2020. FINDINGS: Cardiac silhouette remains magnified and partially obscured by confluent dense parenchymal infiltrate throughout each lung that is similar in appearance to the previous exam. Patient is slightly rotated leftward. Calcification of the aorta. Lines and tubes appear unchanged in position. No evidence of pneumothorax. IMPRESSION : Widespread dense airspace disease and other findings are stable.
[2020-02-14 08:12] LABS: Actual Bicarbonate (HCO3a) 25.6 mEq/L (22-28); Base Excess (BEa) -1.8 mEq/L (-2.0 to +3.0); CO2 Tension 57.5 mmHg (35.0-45.0); Calcium, Ionized (arterial) 1.23 mmol/L (1.12-1.30); Carboxyhemoglobin (COHb) 0.2 gm% (0.0-3.0); Hemoglobin (Hb) 10.2 g/dL (12.0-16.0); Potassium - ABG Lab 4.06 mmol/L (3.70-5.30); pH, Arterial 7.27 (7.35-7.45)
[2020-02-14 08:24] LABS: O2 Tension (PaO2), arterial 54.9 mmHg (> 70.0); Puncture Site LRA
[2020-02-14 08:25] LABS: ALV-art Gradient 586.225 (0-20)
--- NOTE | 2020-02-14 10:23 | PRG ---
DATE OF SERVICE: 02/14/2020 SUBJECTIVE: A 74-year-old remains intubated in the vent. X-ray shows no improvement of diffuse bilateral pulmonary infiltrates. OBJECTIVE: VITAL SIGNS: Pulse 120, blood pressure 150/65, sats are 86% to 87%, with a temperature of 99.7. CHEST: Extensive rhonchi and crackles. CARDIAC: Sinus tach. ABDOMEN: Soft. LABORATORY DATA: White count 11,000, H and H 9 and 29, platelet count 155. PO2 was 54, pCO2 PEEP of 12. Lytes are normal. Sputum is growing Staph aureus. ASSESSMENT AND PLAN: 1. Coronavirus positive pneumonia, acute respiratory distress syndrome. 2. Secondary staph aureus infection, respiratory failure, diabetes. The patient is not weanable at this stage. She was started on new antibiotics for the Staph aureus. I had multiple discussions with the family regarding ongoing care. Trach and PEG cannot be done because of her overall unstable situation. Family understands. We will continue present supportive care. She is day #21 on the vent. One-half hour of critical time. Job ID: [id number]
[2020-02-14 14:06] LABS: Actual Bicarbonate (HCO3a) 25.8 mEq/L (22-28); Base Excess (BEa) -3.3 mEq/L (-2.0 to +3.0); Calcium, Ionized (arterial) 1.23 mmol/L (1.12-1.30); Hemoglobin (Hb) 13.3 g/dL (12.0-16.0); Potassium - ABG Lab 4.09 mmol/L (3.70-5.30)
[2020-02-14 14:10] LABS: CO2 Tension 66.1 mmHg (35.0-45.0); O2 Tension (PaO2), arterial 42.3 mmHg (> 70.0); pH, Arterial 7.21 (7.35-7.45)
[2020-02-14 14:11] LABS: Puncture Site LRA
[2020-02-14 14:16] LABS: ALV-art Gradient 588.075 (0-20)
--- NOTE | 2020-02-14 14:55 | PDOC.PALPN ---
Palliative Progress Note - Subjective remains on mechanical ventilation, non responsive. Son to bedside - Objective Vital Signs: Vital Signs - Most Recent Temp Pulse Resp BP Pulse Ox 99.7 F H 118 H 31 H 158/62 H 92 L 02/14/20 04:00 02/14/20 12:04 02/14/20 06:00 02/14/20 00:17 02/13/20 20:00 - Physical Exam Constitutional: encephalitic, ill appearing, mild distress HEENT: moist MMs Respiratory: diminished lung sound, tachypnea Deviation from normal: mechanical ventilation Cardiovascular: RRR Deviation from normal: tachycardia Genitourinary: zee catheter Musculoskeletal: diffuse muscle atrophy Deviation from normal: sedated, encephalopathic Skin: cap refill <2 seconds Deviation from normal: encephalopathic - Assessment (1) Palliative care encounter Code(s): Z51.5 - ENCOUNTER FOR PALLIATIVE CARE Current Visit: Yes Status: Acute (2) Acute respiratory failure with hypoxemia Code(s): J96.01 - ACUTE RESPIRATORY FAILURE WITH HYPOXIA Current Visit: Yes Status: Acute (3) Pneumonia due to COVID-19 virus Code(s): U07.1 - COVID-19; J12.89 - OTHER VIRAL PNEUMONIA Current Visit: Yes Status: Acute (4) CAD (coronary artery disease) Code(s): I25.10 - ATHSCL HEART DISEASE OF [place] CORONARY ARTERY W/O ANG PCTRS Current Visit: Yes Status: Chronic Qualifiers: Coronary Disease-Associated Artery/Lesion type: bypass graft [place] vs. transplanted heart: [place] heart Associated angina: without angina Qualified Code(s): I25.810 - Atherosclerosis of coronary artery bypass graft(s) without angina pectoris (5) Diabetes mellitus type 2 in obese Code(s): E11.69 - TYPE 2 DIABETES MELLITUS WITH OTHER SPECIFIED COMPLICATION; E66.9 - OBESITY, UNSPECIFIED Current Visit: Yes Status: Chronic - Plan Plan: Patient son to bedside, utilized I Pad for family to see and speak with patient. Father Hayde Jacobs from respiratory and Palliative Care also with patient son after he was at his mothers bedside. Policy Director utilized to communicate with family via I pad. Again discussed poor prognosis and transition to DNAR. Also discussed option of compassionate extubation with patient son at bedside. Family requested time to discuss. Dr Herrera also came and spoke with patient son relaying poor prognosis. Emotional support and therapeutic listening. Family to decide in relation to transition to DNAR as well as potential of compassionate extubation with son at bedside. [45] minutes spent on this encounter with >50% of the time in counseling and coordination of care. - ROS Non Response: due to endotracheal tube, due to mental status
[2020-02-14 15:19] VITALS: BP 129/67
[2020-02-14] MEDS ORDERED: Morphine 2 MG/ML SYRINGE SLOW IVP PRN (16:32)
[2020-02-14] MEDS ORDERED: Lorazepam 2 MG/ML VIAL SLOW IVP PRN (16:33)
--- NOTE | 2020-02-14 17:26 | PDOC.PALFU ---
Palliative Care Follow-up Note Mrs Rubalcava Rob Sam has designated Nallely Sam as surrogate decision maker. The family elected to transition Mrs Guerra to DNAR and compassionately extubate her, having comfort at end of life. DNAR completed. Dr Villarreal and Dr Herrera notified. After patient passed Nallely was notified, family has not elected a home at this time.
--- NOTE | 2020-02-15 07:45 | PQF ---
GUIDO ABEL VINAYA KUMAR MD [id number] CLINICAL DOCUMENTATION CLARIFICATION FORM: POST DISCHARGE Addendum to original discharge summary date: ____ Late entry note date: __ DATE:02/15/2020 ATTN: Rhea Nunez Please exercise your independent, professional judgment in responding to the clarification form. Clinical indicators are provided on the bottom of this form for your review Please check appropriate box(es): [ x ] Sepsis due to Covid 19 PNA [ ] Severe sepsis due to Covid 19 PNA [ ] Septic Shock due to Covid 19 PNA [ ] Localized infection without sepsis [ ] Other diagnosis [ ] Unable to determine In addition, please specify: Present on Admission (POA): [ x ] Yes [ ] No [ ] Unable to determine For continuity of documentation, please document condition throughout progress notes and discharge summary. Thank You. CLINICAL INDICATORS - SIGNS / SYMPTOMS / LABS / RESULTS AND LOCATION IN MR Laboratory 01/23 WBC 9.3, Plt count 181, Neutrophils 89.9, Band 23 Vital signs 01/23 BP 109/57, Pulse 117, Resp 36, temp 99.8 Covid 19-PCR 02/08 Positive Chest Xray 01/23 Impression: shows bilateral opacities and infiltrates ED notes p3 01/23 SIRS Scoring: Pt did meet at least 2 criteria. Sepsis alert was activated H&P p1 01/23 Dr Meng brought to ER for altered mental status, low blood pressure and elevated blood glucose H&P p2 01/23 Dr Meng Acute hypoxic respiratory failure H&P p2 01/23 Dr Meng Acute metabolic encephalopathy H&P p2 01/23 Dr DowneyyPneumonia, Covid 19 infection RISK FACTORS / RESULTS AND LOCATION IN H&P p1 01/23 74 year-old Female H&P p1 01/23 DM H&P p1 01/23 CAD H&P p1 01/23 HTN H&P p1 01/23 Obesity H&P p2 01/23 - Pneumonia, Covid 19 infection TREATMENTS / RESULTS AND LOCATION IN MR OCT 18 IV Azithromycin 500 mg OCT 18 IV Ceftriaxone Sodium 1 gm OCT 18 IVF NS 1L Transfusion 01/23 FFP Respiratory panel 01/23 Oxygen 4 L Respiratory panel 01/23 Bipap Respiratory panel 01/24 Intubated on Mechanical Ventilator Sepsis protocol ordered 01/23 Covid 19-PCR 02/08 Chest X-ray 01/23 Pulmonology consult 01/23 Aj Mendes (This form is maintained as a part of the permanent medical record) 2014 [employer]. All Rights Reserved [email or web address]
--- NOTE | 2020-02-15 18:14 | DIS ---
DATE OF ADMISSION: 01/24/2020 DATE OF DISCHARGE: 02/14/2020 SUMMARY: DATE OF : 02/14/2020 at 1704 hours. BRIEF COURSE DURING HOSPITALIZATION: The patient initially got admitted on the 23 of January for altered mental state. The patient also had elevated blood glucose and low blood pressure. In fact, her blood glucose had gone up to 451 and systolic pressures were in the 70s on arrival. Her saturations were in the 70% and was placed on non-rebreather initially. Her chest x-ray revealed bilateral pulmonary infiltrates. There was strong suspicion for COVID. The patient's COVID-19 PCR came back positive. The patient was given steroids and convalescent plasma. She was also going towards ARDS and was closely monitored in ICU. The patient finally required intubation due to dropping saturations. The patient remained on the ventilator up until the time of . Her overall prognosis was very poor. Family was given continuous updates by Pulmonary Critical Care and hospitalists. Palliative Care was also in touch with family due to very poor prognosis with her being on the ventilator for a long time now. She was finally made do not attempt to resuscitate and on 02/14/2020, the family did not want to pursue any active measures and in fact wanted to withdraw from the ventilator and this was done in the evening and the patient was pronounced at 1704 hours. The body was released to family per hospital protocol. PRIMARY CAUSE OF : 1. COVID-19 pneumonia with acute respiratory distress syndrome. 2. Acute respiratory failure with hypoxia. Both of the above 1 and 2 for 21 days. SECONDARY CAUSE OF : Coronary artery disease, diabetes mellitus type 2, obesity, metabolic encephalopathy. Job ID: [id number] [facility]
== END 2020-02-14 17:04 | disposition expired | DRG 870 ==
LOC: ERS 01:33 → IMCU/EMU 04:30 → CCU 21:00
PROVIDERS: ADMIT Internal Medicine; ATTEND Internal Medicine
PROC: 5A1955Z Respiratory Ventilation, Greater than 96 Consecutive Hours (ICD-10-PCS; principal; 2020-01-24)
PROC: 8E0ZXY6 Isolation (ICD-10-PCS; 2020-01-24)
PROC: 30233L1 Transfusion of Nonautologous Fresh Plasma into Peripheral Vein, Percutaneous Approach (ICD-10-PCS; 2020-01-24)
PROC: 30233K1 Transfusion of Nonautologous Frozen Plasma into Peripheral Vein, Percutaneous Approach (ICD-10-PCS; 2020-01-24)
PROC: 5A09357 Assistance with Respiratory Ventilation, Less than 24 Consecutive Hours, Continuous Positive Airway Pressure (ICD-10-PCS; 2020-01-24)
PROC: 0BH17EZ Insertion of Endotracheal Airway into Trachea, Via Natural or Artificial Opening (ICD-10-PCS; 2020-01-24)
PROC: 06HY33Z Insertion of Infusion Device into Lower Vein, Percutaneous Approach (ICD-10-PCS; 2020-01-24)
DX: A41.89 Other specified sepsis (principal); U07.1 COVID-19; J12.89 Other viral pneumonia; G93.41 Metabolic encephalopathy; J80 Acute respiratory distress syndrome; R40.2222 Coma scale, best verbal response, incomprehensible words, at arrival to emergency department; R40.2122 Coma scale, eyes open, to pain, at arrival to emergency department; E87.0 Hyperosmolality and hypernatremia; Z66 Do not resuscitate; Z51.5 Encounter for palliative care; I25.10 Atherosclerotic heart disease of native coronary artery without angina pectoris; E11.65 Type 2 diabetes mellitus with hyperglycemia; T38.0X5A Adverse effect of glucocorticoids and synthetic analogues, initial encounter; E78.00 Pure hypercholesterolemia, unspecified; I10 Essential (primary) hypertension; R40.2352 Coma scale, best motor response, localizes pain, at arrival to emergency department; E66.9 Obesity, unspecified; J20.8 Acute bronchitis due to other specified organisms; B95.61 Methicillin susceptible Staphylococcus aureus infection as the cause of diseases classified elsewhere; Y95 Nosocomial condition; Z68.32 Body mass index [BMI] 32.0-32.9, adult; Z78.1 Physical restraint status; Z95.1 Presence of aortocoronary bypass graft; Z79.899 Other long term (current) drug therapy; Z79.4 Long term (current) use of insulin; Z79.82 Long term (current) use of aspirin
CPT/HCPCS: 36415; 36416; 36430; 51702; 71045; 80048; 80053; 80076; 81003; 82728; 82805; 83036; 83880; 84484; 85025; 85379; 85610; 85730; 86140; 86850; 86900; 86901; 87070; 87077; 87186; 87205; 87635; 92950; 93005; 94002; 94003; 94640; 94660; 96361; 96374; 96375; J0360; J0456; J0692; J0696; J1630; J1650; J1815; J1940; J2020; J2060; J2270; J2704; J2920; J3262; J3480; J3490; J7050; J7620; S0028; U0003